=== PATIENT | female | born 1945 | race Caucasian/White ===

== ENCOUNTER 2024-12-29 23:44 | Inpatient (IN) | payer MEDICARE, OTHER, SELFPAY ==
[2024-12-29 23:47] VITALS: PULSE 56; RESP 20; O2SAT 94
[2024-12-29 23:50] VITALS: BP 134/74; PULSE 61; RESP 21; TEMP 36.3; O2SAT 89
[2024-12-30] VITALS (18 sets, daily range): BP systolic 99–139; BP diastolic 51–80; PULSE 52–107; RESP 5–100; TEMP 35.9–37.2; O2SAT 93–100
--- NOTE | 2024-12-30 01:20 | PD.EDSYNC ---
ED Syncope RME/HPI General Chief Complaint: Syncope / Near Syncope Stated Complaint: SYNCOPE Time Seen by Provider: 12/29/24 23:53 Arrival date/time: 12/29/24 23:44 RME / HPI RME / HPI narrative: Dr. Fall?s Main ED Evaluation: 79yo female with a history of Alzheimer's dementia, DM, HTN BIBA from home presents to the ED for a chief complaint of syncope. states the patient has had diarrhea for the last few days, reporting she lost control of her bowels today. He states the patient was sitting down on the toilet when she laid back and passed out, reporting she started shaking. He was concerned, so he called 911 to have her brought in for evaluation. He denies any sweating. Patient denies any headache, neck pain, chest pain, abdominal pain, extremity pain or any other associated symptoms. denies the patient being on any recent antibiotics. Related Data Home Medications ?Medication ?Instructions ?Recorded ?Confirmed atenolol 25 mg tablet (Tenormin) 25 mg PO QDAY #0 tabs 06/09/15 12/19/22 clonazepam 1 mg tablet (Klonopin) 1 mg PO BID #0 tabs 06/09/15 12/19/22 Held on 07/12/22. Instructions: Resume on 07/13/22. lisinopril 5 mg tablet 5 mg PO QDAY #0 tabs 06/09/15 12/19/22 escitalopram oxalate 10 mg tablet 10 mg PO QDAY 06/23/20 12/19/22 atorvastatin 20 mg tablet 20 mg PO HS 12/19/22 12/19/22 Allergies Allergy/AdvReac Type Severity Reaction Status Date / Time bacitracin Allergy Intermediate BLISTERS Verified 12/29/24 23:46 gramicidin D Allergy Intermediate BLISTERS Verified 12/29/24 23:46 neomycin Allergy Intermediate BLISTERS Verified 12/29/24 23:46 polymyxin B Allergy Intermediate BLISTERS Verified 12/29/24 23:46 Review of Systems Review of Systems Systems Reviewed: All systems reviewed, normal except as documented Past Medical History Past Medical History NEUROLOGIC: Positive Neurological Disorders, Cerebrovascular Accident and Dementia; Negative Seizures CARDIAC: Positive Cardiac Disorders, Hypercholesterolemia, Aneurysm and Hypertension; Negative Congestive Heart Failure RESPIRATORY: Negative Chronic Obstructive Pulmonary Disease (COPD) or Asthma GASTROINTESTINAL: Positive Gastrointestinal Disorders and Gastroesophageal Reflux Disease GENITOURINARY: Negative Renal Disease REPRODUCTIVE: Positive Previous Pregnancies MUSCULOSKELETAL: Positive Musculoskeletal Disorders, Arthritis, Osteoporosis and Scoliosis ENT: Positive Deafness ENDOCRINE: Negative Endocrine Disorders, Diabetes Mellitus Type 1 or Diabetes Mellitus Type 2 HEMATOLOGIC: Negative Blood Disorders or Sickle Cell Disease PSYCHO/SOCIAL: Positive Depression and Anxiety OTHER HISTORY: Positive Hospitalization and Falls; Negative Blood Transfusions, Blood Transfusion Reaction, Anesthesia Reactions, Organ Transplant, Chemotherapy, Radiation Therapy or Hyperbaric Therapy Surgical History SURGICAL: Positive Neurologic Surgery and Hysterectomy; Negative Organ Transplant Social History SMOKING STATUS: Never smoker SECOND HAND EXPOSURE: No SUBSTANCE USE: does not use ED Exam Narrative Physical exam: GENERAL APPEARANCE: awake, alert, oriented to self, pleasantly demented, well-developed, well-nourished, no acute distress VITALS: All vitals were reviewed and the pulse ox is 98% on room air, which is hypoxic according to my interpretation. HEENT: Normocephalic, atraumatic; pupils equal, round, reactive to light; EOMI; mucous membranes pink, moist; oropharynx clear NECK: Supple LUNGS: CTABL; no wheezes, no rales, no rhonchi HEART: Regular rate, regular rhythm; normal S1, S2; no murmurs ABDOMEN: non distended; normal BS; soft, no tenderness, no guarding, no rebound; no masses, no organomegaly, no hernia BACK: no CVA tenderness EXTREMITIES: atraumatic; no edema NEUROLOGIC: awake, alert, oriented to self, pleasantly demented; cranial nerves II-XII grossly intact; no focal sensory or motor deficits PSYCHIATRIC: appropriate mood and affect SKIN: warm, dry, normal color; no rashes Course Quality Measures none Orders Category Date Time Status 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 Care 12/30/24 01:23 Active Continuous Pulse Oximetry NOW Care 12/30/24 01:24 Completed EKG (ED ONLY) *Do not use* NOW Care 12/30/24 01:23 Completed In and Out Catheter X1 Care 12/30/24 01:22 Completed Insert IV STAT Care 12/30/24 01:23 Active Orthostatic Vitals STAT Care 12/30/24 01:[address] head/brain wo con Stat Exams 12/30/24 01:23 Taken EKG (ED Only) Stat Exams 12/30/24 01:22 Ordered XR chest 1V portable Stat Exams 12/30/24 01:28 Taken CBC Stat Lab 12/30/24 01:57 Completed Comprehensive Metabolic Panel Stat Lab 12/30/24 01:57 Completed HCG Qualitative,Urine Stat Lab 12/30/24 01:29 Completed Magnesium Stat Lab 12/30/24 01:57 Completed Prothrombin Time with INR Stat Lab 12/30/24 01:57 Completed Troponin I Stat Lab 12/30/24 01:57 Completed Urinalysis Stat Lab 12/30/24 01:29 Completed Urine Culture Stat Lab 12/30/24 01:29 Received LORazepam [Ativan Inj] Med 12/30/24 03:39 Once 0.5 mg IVP X1 ONE Sodium Chloride 0.9% 500 ml [Ns] 500 ml Med 12/30/24 03:39 Ordered IV 999 mls/hr cefTRIAXone/D5w 1gm IV premix [Rocephin/D5w 1gm IV Med 12/30/24 03:39 Ordered premix] 1 gm in 50 ml IV X1 Vital Signs Vital signs: Vital Signs Temperature 97.4 F 12/29/24 23:50 Pulse Rate 61 12/29/24 23:50 Respiratory Rate 21 H 12/29/24 23:50 Blood Pressure 134/74 H 12/29/24 23:50 Pulse Oximetry (%) 89 L 12/29/24 23:50 Oxygen Delivery Method Room Air 12/29/24 23:50 Syncope MDM Narrative MDM Narrative:: Scribe Attestation: 12/30/24 Isi Nicole am scribing for and in the presence of Dr. Fall. Patient data External records reviewed:: [facility] previous records (Per chart review, patient was seen here on 12/20/22 for Alzheimer's dementia.) Clinical information provided by:: patient and spouse Social determinants that could affect healthcare access:: none Patient has the following chronic illnesses:: Alzheimer's dementia, DM, HTN How is presenting disease/condition affected by chronic disease/condition?: uneffected by Evaluation data The following diagnostics were reviewed and interpreted by me:: lab results, radiology exam(s) and EKG tracing(s) Lab and/or radiology exams considered but not ordered:: none Interpretation Summary: WBC 15.8, PT and INR are normal, Glucose is 146, Troponin is normal, UA is positive for a UTI, HCG is negative, according to my interpretation. CXR shows normal cardiac silhouette, normal sharp diaphragmatic edge, no infiltrates, normal costophrenic angles, according to my interpretation. EKG done at 0150, sinus bradycardia, rate of 59, left axis deviation, no ectopy, QTc: 299, QRS: 120, no acute ischemia, according to my interpretation. Telerad Preliminary Report Draft Patient: ADRIANE BONILLA. Record#: [id number] Birthdate: 1945 Age/Sex: 79 / F Location: [facility] Attending Dr: Ordering Physician: Date of Service: Procedure(s): Accession Number(s): cc: ~ CT scan of the head without intravenous contrast (axial sections with sagittal and coronal reformats) December 30, 2024 0144 hours Clinical history: Syncope Compared with the prior study dated September 22, 2022 Findings: There is no evidence of intracranial hemorrhage, mass effect or midline shift. There are mild periventricular white matter hypodensities, likely representing chronic small vessel ischemia. There is moderate volume loss. There is atheromatous calcification of the intracranial arteries. Embolization coils are again noted in both internal carotid arteries. Postoperative changes are again noted in the occipital region. The calvarium is otherwise unremarkable. The mastoid air cells and the visualized paranasal sinuses are clear. Impression: No evidence of intracranial hemorrhage, mass effect or midline shift. If there are persistent clinical symptoms or additional clinical concerns, consider MRI. Chronic small vessel ischemia and volume loss. Report Electronically Signed By: Matt Lyle 12/30/2024 3:22:32 AM Medications / Prescriptions Medications or Prescriptions considered but not ordered:: none Medication administrations:: Medication Administration History Ceftriaxone Sodium/Dextrose (Rocephin/D5w 1gm Iv Premix) 1 gm in 50 mls @ 100 mls/hr IV X1 ONE Stop: 12/30/24 04:08 Sodium Chloride (Ns) 500 mls @ 999 mls/hr IV .Q31M ONE Stop: 12/30/24 04:09 Lorazepam (Lorazepam 2 Mg/Ml Vial) 0.5 mg IVP X1 ONE Stop: 12/30/24 03:40 see above Consultations Consultation(s) initiated? (list below): Yes Consultation #1 (Physician, Specialty, Details): Discussed case with the resident physician, attending Dr. Ventura from Hospitalist service regarding admission. Discussed patients ED course, exam findings, labs, and radiology results. The Hospitalist agrees to accept the patient for admission. Time: 03:41 Diagnosis Syncope Differential Diagnosis: vasovagal syncope and other (STEMI, hemorrhagic CVA, sepsis, septic shock) Most likely diagnosis given after review of the tests above:: UTI, sepsis, syncope Admission Indicated Admission indicated?: indicated Admission Request Was there a request for admission?: Yes Admission Attestation Admission request attestation: Discussed case with [] from Hospitalist service regarding admission. Discussed patients ED course, exam findings, labs, and radiology results. The Hospitalist [agrees,declines] to accept the patient for admission. Disposition Plan Disposition Plan: Admit Discharge Plan Plan Patient Disposition: Admit Acute Care w/in Hospital Prescriptions/Referrals Prescriptions/Med Rec: No Action clonazepam [Klonopin] 1 MG tablet 1 mg PO BID Qty: 0 atenolol [Tenormin] 25 MG tablet 25 mg PO QDAY Qty: 0 lisinopril 5 MG tablet 5 mg PO QDAY Qty: 0 escitalopram oxalate 10 mg Tablet 10 mg PO QDAY atorvastatin 20 mg tablet 20 mg PO HS Referrals: Jaime Wahl MD [Primary Care Provider] - In 1 week Problem List Clinical Impression: UTI (urinary tract infection), Sepsis, Syncope Patient/Caregiver Discharge Instructions Print Language: Upper Sorbian Stand Alone Forms: Mag[employer] Award Info., Patient Portal Info Letter
--- NOTE | 2024-12-30 01:22 | EKG_ITS ---
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
--- NOTE | 2024-12-30 01:23 | XR_ITS ---
Examination: CT brain head without contrast. 2-D sagittal coronal reconstructions Date and time of exam:December 30, 2024 0144 hours Comparison December 20, 2022 INDICATIONS: Syncopal episode today CTDI: vol (mGy):44.7 DLP: (mGycm):889 Technique: Multiple CT axial sections of the brain have been obtained, 5 mm slice thickness. Contrast has not been administered. 2-D sagittal, coronal reconstructions have been obtained Low dose protocols were performed. One or more of the following dose reduction techniques were used; automated exposure control, adjustment of the mA and/or KV according to patient size, use of iterative reconstruction technique. Findings: Mild ventricular enlargement. Embolization material parasellar regions Intra-axial or extra-axial hemorrhage density is not seen. No mass effect or midline shift Basal cisterns are not remarkable. Fourth ventricle is midline. Cranial vault intact. Postoperative changes posterior cranial vault Impression: Negative for acute hemorrhage, mass effect or midline shift Advise clinical correlation and follow up accordingly
--- NOTE | 2024-12-30 01:28 | XR_ITS ---
Examination: AP chest single view TECHNIQUE: AP portable semiupright chest single view Date and time: December 30, 2024 0156 hours INDICATIONS: Syncopal episode tonight. FINDINGS: Normal heart size. Lungs are clear. Moderate thoracic dextroscoliosis IMPRESSION: No active disease
[2024-12-30 02:01] LABS: Collection Type, Urine Catheter; Squamous Epithelial Cell,Urine 0 /hpf (0-5)
[2024-12-30 02:05] LABS: Basophils % (Auto) 0 % (0-2.5); Eosinophils # (Auto) 0.1 Thou/mm3 (0.0-0.5); Eosinophils % (Auto) 0 % (0-10); Hematocrit 39.4 % (36.0-46.0); Hemoglobin 13.2 g/dL (12.0-16.0); Immature Granulocytes % (Auto) 1 % (0-0); Lymphocytes # (Auto) 1.1 Thou/mm3 (1.0-4.8); Lymphocytes % (Auto) 7 % (10-50); Mean Corpuscular HGB Conc 33.5 g/dl (31.0-37.0); Mean Corpuscular Hemoglobin 29.8 pg (25.0-35.0); Mean Corpuscular Volume 89 fL (80-100); Monocytes # (Auto) 0.8 Thou/mm3 (0.0-0.8); Monocytes % (Auto) 5 % (0-12); Neutrophils # (Auto) 13.7 Thou/mm3 (1.8-7.7); Neutrophils % (Auto) 87 % (37-80); Nucleated Red Blood Cell % 0 /100 WBC (0); Platelet Count 212 Thou/mm3 (140-440); RDW Standard Deviation 41.1 fL (36.4-46.3); Red Blood Count 4.43 Miln/mm3 (4.00-5.20); White Blood Count 15.8 Thou/mm3 (3.6-11.0)
[2024-12-30 02:11] LABS: Bacteria,Urine 2+; Bilirubin,Urine Negative (Negative); Blood,Urine Trace (Negative); Calcium Oxalate Crystals,Urine 1+; Clarity,Urine Turbid (Clear/Hazy); Color,Urine Yellow (Lt Yel-Yel); Glucose, Urine Negative (Negative); Hyaline Casts,Urine < 1 /hpf (0-1); Ketones,Urine Negative (Negative); Leukocyte Esterase,Urine Positive (Negative); Nitrite,Urine Negative (Negative); PH,Urine 5.5 (5.0-7.0); Protein,Urine 1+ (Neg - Trace); RBC,Urine 11 /hpf (0-3); Specific Gravity,Urine 1.022 (1.001-1.035); Urobilinogen,Urine Negative mg/dL (0.0-1.0); WBC,Urine 97 /hpf (0-5)
[2024-12-30 02:13] LABS: HCG Qualitative,Urine Negative
[2024-12-30 02:17] LABS: INR 1.1 (0.9-1.3); Prothrombin Time 11.9 Seconds (9.0-12.2)
[2024-12-30 02:25] LABS: Alanine Aminotransferase 30 U/L (10-49); Albumin, Serum 4.4 gm/dL (3.4-4.8); Albumin/Globulin Ratio 1.9 (1.2-2.2); Alkaline Phosphatase 120 U/L (46-116); Anion Gap 11 (7-16); Aspartate Amino Transferase 25 U/L (0-34); BUN/Creatinine Ratio 16 Ratio (12-20); Bilirubin,Total 2.1 mg/dL (0.3-1.2); Blood Urea Nitrogen 13 mg/dL (9-23); Carbon Dioxide 31.3 mMol/L (20.0-31.0); Chloride 100 mMol/L (98-107); Creatinine (Component) 0.8 mg/dL (0.6-1.3); Estimated Creatinine Clearance 50.6 mL/min (>60); Globulin 2.3 gm/dL (2.3-3.5); Glucose 146 mg/dL (74-106); Magnesium 1.7 mg/dL (1.6-2.6); Osmolality,Calculated 286 (275-295); Potassium 3.7 mMol/L (3.4-5.1); Sodium 142 mMol/L (136-145); Total Protein 6.7 gm/dL (5.7-8.2); Troponin I < 0.002 ng/mL (0.0-0.045); eGFR > 60 See Note
--- NOTE | 2024-12-30 03:23 | PRELIM_ITS ---
CT scan of the head without intravenous contrast (axial sections with sagittal and coronal reformats) December 30, 2024 0144 hours Clinical history: Syncope Compared with the prior study dated September 22, 2022 Findings: There is no evidence of intracranial hemorrhage, mass effect or midline shift. There are mild periventricular white matter hypodensities, likely representing chronic small vessel ischemia. There is moderate volume loss. There is atheromatous calcification of the intracranial arteries. Embolization coils are again noted in both internal carotid arteries. Postoperative changes are again noted in the occipital region. The calvarium is otherwise unremarkable. The mastoid air cells and the visualized paranasal sinuses are clear. Impression: No evidence of intracranial hemorrhage, mass effect or midline shift. If there are persistent clinical symptoms or additional clinical concerns, consider MRI. Chronic small vessel ischemia and volume loss. Report Electronically Signed By: Matt Lyle 12/30/2024 3:22:32 AM [EST]
[2024-12-30] MEDS: cefTRIAXone/D5w 1gm IV premix 1 GM/50 ML BAG IV (04:18)
[2024-12-30] MEDS: SODIUM CHLORIDE 0.9% 500 ML 500 ML 999 ML IV (04:19)
--- NOTE | 2024-12-30 05:39 | ESHP_ITS ---
<Statement entered by Maxi Ventura MD - 12/30/24 13:27> I have discussed and was present for the essential components of the history, physical examination, diagnosis, and treatment plan with the resident. I agree with the patient's care as documented by the resident and amended herein by me. Maxi Ventura MD FACP. Documentation for date of: 12/30/24 HPI History of Present Illness History of present illness: Patient is a 79-year-old female with a past medical history of Alzheimer's dementia, hypertension, hyperlipidemia, coiling of brain aneurysms, who was brought into the ER by her female, who is present at bedside and contributed to the H&P. Per the patient has been progressively getting worse from her baseline, especially over the past 3 weeks she is becoming more incontinent of bladder and bowel movements, she is having loose bowel movements in the past few days, yesterday the patient lost control of her bowels, she was leaning over the toilet seat when her body stiffened up and then started having jerky movements, which lasted around 2 minutes. After the episode patient was drowsy and nonresponsive for quite some time. called EMS and brought her to the emergency room for further evaluation. Per , the patient has been not been evaluated by a neurologist in the past, has had no past medical history of seizures. Denied history of fever, chest pain shortness of breath or headache. she is able to ambulate with her walker, but is having a shuffling gait and has had frequent falls over the past few weeks. In the emergency room, Patient has stable vitals, blood pressure 130/74, respiratory 21, pulse rate 69, afebrile, saturating well on room air, initial labs showed normal hemoglobin, leukocytosis, normal renal and liver function, UA positive for UTI. Chest x-ray is negative for evidence of pneumonia. EKG showed sinus bradycardia heart rate 59, CT head was ordered which showed no evidence of intracranial hemorrhage, mass effect or midline shift. Past medical history: Alzheimer's dementia, hypertension, hyperlipidemia, coiling of brain aneurysms, Per the patient has kivalina in her brain from previous surgery, and was denied an MRI in the past because of that. Past surgical history: Hip surgery, clotting of brain aneurysms. Allergies reviewed. Home meds reviewed. Review of Systems Review of Systems Systems Reviewed: All systems reviewed, normal except as documented Past Medical History Past Medical History NEUROLOGIC: Positive Neurological Disorders, Cerebrovascular Accident and Dementia; Negative Seizures CARDIAC: Positive Cardiac Disorders, Hypercholesterolemia, Aneurysm and Hypertension; Negative Congestive Heart Failure RESPIRATORY: Negative Chronic Obstructive Pulmonary Disease (COPD) or Asthma GASTROINTESTINAL: Positive Gastrointestinal Disorders and Gastroesophageal Reflux Disease GENITOURINARY: Negative Renal Disease REPRODUCTIVE: Positive Previous Pregnancies MUSCULOSKELETAL: Positive Musculoskeletal Disorders, Arthritis, Osteoporosis and Scoliosis ENT: Positive Deafness ENDOCRINE: Negative Endocrine Disorders, Diabetes Mellitus Type 1 or Diabetes Mellitus Type 2 HEMATOLOGIC: Negative Blood Disorders or Sickle Cell Disease PSYCHO/SOCIAL: Positive Depression and Anxiety OTHER HISTORY: Positive Hospitalization and Falls; Negative Blood Transfusions, Blood Transfusion Reaction, Anesthesia Reactions, Organ Transplant, Chemotherapy, Radiation Therapy or Hyperbaric Therapy Surgical History SURGICAL: Positive Neurologic Surgery and Hysterectomy; Negative Organ Transplant Social History SMOKING STATUS: Never smoker SECOND HAND EXPOSURE: No SUBSTANCE USE: does not use Exam Vital Signs Temp Pulse Resp BP Pulse Ox O2 Del Method 97.8 F 66 24 H 130/80 98 Room Air 12/30/24 03:17 12/30/24 03:17 12/30/24 03:17 12/30/24 03:17 12/30/24 03:17 12/30/24 03:17 Narrative Exam The patient is alert awake in no acute distress HEENT unremarkable Neck supple no JVD carotid pulse palpable no bruit Chest symmetrical lungs clear to auscultation percussion Heart S1-S2 regular S4 gallop heard No gallops or murmurs Abdomen benign soft no organomegaly Extremities unremarkable except for findings consistent with fracture of the hip 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 LAB 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 exam normal Results: Labs 12/30/24 01:57 12/30/24 01:57 Labs: Short CBC 12/30/24 Range/Units 01:57 WBC 15.8 H (3.6-11.0) Thou/mm3 Hgb 13.2 (12.0-16.0) g/dL Hct 39.4 (36.0-46.0) % Plt Count 212 (140-440) Thou/mm3 BMP 12/30/24 01:57 Sodium 142 Potassium 3.7 Chloride 100 Carbon Dioxide 31.3 H BUN 13 Creatinine 0.8 Glucose 146 H Calcium 9.0 Cardiac Enzymes 12/30/24 Range/Units 01:57 Troponin I < 0.002 (0.0-0.045) ng/mL Liver Function 05/20/25 Range/Units 01:57 Total Bilirubin 2.1 H (0.3-1.2) mg/dL AST 25 (0-34) U/L ALT 30 (10-49) U/L Alkaline Phosphatase 120 H (46-116) U/L Albumin 4.4 (3.4-4.8) gm/dL Urine 12/30/24 Range/Units 01:29 Urine Color Yellow (Lt Yel-Yel) Urine Clarity Turbid A (Clear/Hazy) Urine pH 5.5 (5.0-7.0) Ur Specific Weld 1.022 (1.001-1.035) Urine Protein 1+ A (Neg - Trace) Urine Glucose (UA) Negative (Negative) Quality Measures Quality Measures none Advance care planning discussed with:: patient and spouse Medications Home Medications and Allergies Home Medications ?Medication ?Instructions ?Recorded ?Confirmed ?Type atenolol 25 mg tablet (Tenormin) 25 mg PO QDAY #0 tabs 06/09/15 12/19/22 History clonazepam 1 mg tablet (Klonopin) 1 mg PO BID #0 tabs 06/09/15 12/19/22 History Held on 07/12/22. Instructions: Resume on 07/13/22. lisinopril 5 mg tablet 5 mg PO QDAY #0 tabs 5 12/19/22 History escitalopram oxalate 10 mg tablet 10 mg PO QDAY 12/19/22 History atorvastatin 20 mg tablet 20 mg PO HS 12/19/22 3 History Allergies Allergy/AdvReac Type Severity Reaction Status Date / Time bacitracin Allergy Intermediate BLISTERS Verified 12/29/24 23:46 gramicidin D Allergy Intermediate BLISTERS Verified 12/29/24 23:46 neomycin Allergy Intermediate BLISTERS Verified 12/29/24 23:46 polymyxin B Allergy Intermediate BLISTERS Verified 12/29/24 23:46 Visit Medications Acetaminophen (Acetaminophen 325 Mg Tablet) 650 mg PO Q6H PRN PRN Reason: PAIN OR FEVER > 101 Stop: 01/29/25 05:32 Ceftriaxone Sodium/Dextrose (Rocephin/D5w 1gm Iv Premix) 1 gm in 50 mls @ 100 mls/hr IV QDAY OBDULIA Stop: 01/06/25 05:36 Lorazepam (Lorazepam 2 Mg/Ml Vial) 2 mg IVP Q15MIN PRN PRN Reason: SEIZURES Stop: 01/04/25 05:32 Ondansetron HCl (Ondansetron Inj 2 Mg/Ml Inj 2 Ml) 4 mg IV Q6H PRN; Protocol PRN Reason: NAUSEA OR VOMITING Stop: 01/29/25 05:32 Sennosides (Senna Tablet) 2 tab PO BID PRN; Protocol PRN Reason: CONSTIPATION Stop: 01/29/25 05:32 Discontinued Medications Ceftriaxone Sodium/Dextrose (Rocephin/D5w 1gm Iv Premix) 1 gm in 50 mls @ 100 mls/hr IV X1 ONE Stop: 12/30/24 04:08 Last Infusion: 12/30/24 05:08 Dose: Infused Sodium Chloride (Ns) 500 mls @ 999 mls/hr IV .Q31M ONE Stop: 12/30/24 04:09 Last Infusion: 12/30/24 05:08 Dose: Infused Lorazepam (Lorazepam 2 Mg/Ml Vial) 0.5 mg IVP X1 ONE Stop: 12/30/24 03:40 Assessment & Plan Plan Patient is a 79-year-old female with a past medical history of Alzheimer's dementia, hypertension, hyperlipidemia, coiling of brain aneurysms, who was admitted to the hospital due to concern for new onset seizures. #New onset seizure #Acute encephalopathy, likely postictal state Generalized tonic-clonic seizure with postictal state and bowel incontinence, witnessed by , first episode of new onset seizure, no prior medical history of epilepsy or brain mass. CT head negative for acute stroke or hemorrhage. 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 New onset seizure, first episode, will hold off on antiepileptic medications, will keep seizure precautions and lorazepam as needed in case of seizures. Pending med rec, will hold home antihypertensive medication at this point, pending neurology recommendations. ? Ordered orthostatic vitals ? Lorazepam as needed for seizures ? Neurology consult Dr. Dumont placed, pending recommendations. ? Will hold off on aspirin due to history of brain aneurysm, pending neurology recommendations - PT ordered #UTI Urinalysis shows UTI, patient does have leukocytosis, possibly reactive leukocytosis versus UTI. ? Ceftriaxone 1 g daily - follow urine culture #Diarrhea No recent antibiotic exposure reported, has been incontinent of bowel and bladder movements for the past few weeks. Last concerned about C. difficile at this point. Consider isolation and C. difficile PCR if non resolving diarrhea. ? Stool culture and stool WBCs ordered ? Loperamide as needed Plan of care discussed with attending Dr Audrey Parish pgy2
[2024-12-30] MEDS: HEPARIN SOD INJ 5000 UNIT/ML VIAL SC ×2 (05:55→21:05)
--- NOTE | 2024-12-30 06:05 | EKG_ITS ---
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
[2024-12-30] MEDS: SODIUM CHLORIDE 0.9% 1000 ML 1,000 ML 125 ML IV (07:43)
--- NOTE | 2024-12-30 08:09 | PC.NURSE ---
Pt sitting up on stretcher, denies pain or discomfort, has difficult time keeping tele leads connected. Fluids infusing, at bedside attentive to pt, call newman in reach, will cont w/POC.
--- NOTE | 2024-12-30 09:40 | EKG_ITS ---
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: : 1945 Requested By: Aguilar Mcnulty Order Number: [id number] Reading MD: Aguilar Mcnulty Measurements Intervals [place] Rate: 59 P: 59 WV: 120 QRS: -37 QRSD: 120 T: 0 QT: 299 QTc: 298 Interpretive Statements SINUS BRADYCARDIA LEFT AXIS DEVIATION [QRS AXIS < -30] MODERATE INTRAVENTRICULAR CONDUCTION DELAY [110+ ms QRS DURATION] NONSPECIFIC ST & T-WAVE ABNORMALITY Compared to ECG 06/23/2020 09:10:48 Left-axis deviation now present Intraventricular conduction delay now present T-wave abnormality now present Sinus rhythm no longer present Sinus arrhythmia no longer present Short W[place] interval no longer present ST (T wave) deviation no longer present /store/S0/[id number]
[2024-12-30] MEDS: DONEPEZIL HCL 5 MG TABLET 10 MG PO (10:07)
[2024-12-30] MEDS: ESCITALOPRAM OXALATE 10 MG TABLET PO (10:07)
[2024-12-30 10:52] LABS: Thyroid Stimulating Hormone 2.17 uIU/mL (0.55-4.78)
--- NOTE | 2024-12-30 14:45 | PD.RESPRO ---
Documentation for date of: 12/30/24 Subjective Subjective Interval history: Patient examined at bedside today. No acute overnight events. Patient is poor historian at this time. Patient is able to answer some questions, however is poor historian. Patient's at bedside had reported that patient had seizure for about 2 minutes. He denies history of seizures prior for the patient. He also says that patient has [place] in the brain due to coiled aneurysm in the past. He also says that patient has been losing control of bowel for about a week. No other complaints at this time. Exam Vital Signs Temp Pulse Resp BP Pulse Ox O2 Del Method 97.7 F 61 16 139/66 H 100 Room Air 12/30/24 09:17 12/30/24 12:01 12/30/24 12:01 12/30/24 09:17 12/30/24 09:17 12/30/24 09:17 Narrative Exam General: AAOx1, NAD, pleasant, patient is not always alert to time and place, frail HEENT: Moist mucous membranes, conjunctiva clear, EOMI, PERRLA, Cardiovascular: S1, S2, radial pulses +2 bilat, RRR Pulmonary: CTAB bilat no cough, no wheezing GI: No tenderness to light or deep palpitation, no guarding, rigidity, rebound tenderness or distension Extremities: No presence of trace or pitting edema in lower extremities bilaterally, dorsalis pedis pulses +2 bilaterally Neuro: AAOx1, no focal motor or sensory deficits in the UE or LE bilat, sometimes sentences she says does not make sense Psych: Good judgement, thought and behavior. Cooperative Objective Labs 12/30/24 01:57 12/30/24 01:57 Labs: Laboratory Results - last 24 hr 12/30/24 12/30/24 12/30/24 01:29 01:57 10:04 WBC 15.8 H RBC 4.43 Hgb 13.2 Hct 39.4 MCV 89 MCH 29.8 MCHC 33.5 RDW Std Deviation 41.1 Plt Count 212 Neut % (Auto) 87 H Lymph % (Auto) 7 L [place] % (Auto) 5 Eos % (Auto) 0 Baso % (Auto) 0 Neut # (Auto) 13.7 H Lymph # (Auto) 1.1 [place] # (Auto) 0.8 Eos # (Auto) 0.1 Baso # (Auto) 0.0 Immature Gran # (Auto) 0.10 H Absolute Nucleated RBC 0.00 Immature Gran % 1 H Nucleated RBC % 0 PT 11.9 INR 1.1 Sodium 142 Potassium 3.7 Chloride 100 Carbon Dioxide 31.3 H Anion Gap 11 BUN 13 Creatinine 0.8 Estim Creat Clear Calc 50.6 L eGFR > 60 BUN/Creatinine Ratio 16 Glucose 146 H Calculated Osmolality 286 Calcium 9.0 Corrected Calcium 9.0 Magnesium 1.7 Total Bilirubin 2.1 H AST 25 ALT 30 Alkaline Phosphatase 120 H Troponin I < 0.002 Total Protein 6.7 Albumin 4.4 Globulin 2.3 Albumin/Globulin Ratio 1.9 TSH 2.17 Ur Collection Type Catheter Urine Color Yellow Urine Clarity Turbid A Urine pH 5.5 Ur Specific [place] 1.022 Urine Protein 1+ A Urine Glucose (UA) Negative Urine Ketones Negative Urine Blood Trace Urine Nitrite Negative Urine Bilirubin Negative Urine Urobilinogen (Auto) Negative Ur Leukocyte Esterase Positive Urine RBC 11 H Urine WBC 97 H Ur Squamous Epith Cells 0 Calcium Oxalate Crystal 1+ A Urine Bacteria 2+ A Hyaline Casts < 1 Urine HCG, Qual Negative Quality Measures Quality Measures none Advance care planning discussed with:: patient Assessment & Plan Assessment Current Active Medications: Generic Name Dose Route Start Last Admin Trade Name Freq PRN Reason Stop Dose Admin Acetaminophen 650 mg 12/30/24 05:33 Acetaminophen 325 Mg Tablet PO 01/29/25 05:32 Q6H PRN PAIN OR FEVER > 101 Atorvastatin Calcium 20 mg 12/30/24 21:00 Atorvastatin Calcium 20 Mg Tablet PO 01/29/25 20:59 HS OBDULIA Donepezil HCl 10 mg 12/30/24 09:45 12/30/24 10:07 Donepezil Hcl 5 Mg Tablet PO 01/29/25 09:44 10 mg QDAY OBDULIA Administration Escitalopram Oxalate 10 mg 12/30/24 09:45 12/30/24 10:07 Escitalopram Oxalate 10 Mg Tablet PO 01/29/25 09:44 10 mg QDAY OBDULIA Administration Heparin Sodium (Porcine) 5,000 unit 12/30/24 05:45 12/30/24 05:55 Heparin Sod Inj 5000 Unit/Ml Vial SC 01/13/25 05:44 5,000 unit Q12HR OBDULIA Administration Ceftriaxone Sodium/Dextrose 1 gm in 50 mls @ 100 mls/hr 12/30/24 05:37 12/30/24 05:53 Rocephin/D5w 1gm Iv Premix IV 01/06/25 05:36 Not Given QDAY OBDULIA Loperamide HCl 2 mg 12/30/24 06:07 Loperamide 2 Mg Capsule PO 01/06/25 06:06 Q6HR PRN DIARRHEA Lorazepam 2 mg 12/30/24 05:33 Lorazepam 2 Mg/Ml Vial IVP 01/04/25 05:32 Q15MIN PRN SEIZURES Ondansetron HCl 4 mg 12/30/24 05:33 Ondansetron Inj 2 Mg/Ml Inj 2 Ml IV 01/29/25 05:32 Q6H PRN NAUSEA OR VOMITING Protocol Quetiapine Fumarate 50 mg 12/30/24 21:00 Quetiapine Fumarate 25 Mg Tablet PO 01/29/25 20:59 HS OBDULIA Plan Assessment Patient is a 79-year-old female with a past medical history of Alzheimer's dementia, hypertension, hyperlipidemia, coiling of brain aneurysms, who was admitted to the hospital due to concern for new onset seizures. #Acute encephalopathy s/p postictal state, improving #New onset seizure Generalized tonic-clonic seizure with postictal state and bowel incontinence, witnessed by , first episode of new onset seizure, no prior medical history of epilepsy or brain mass. CT head negative for acute stroke or hemorrhage. Per patient has cis-[place] in her brain, and was declined an MRI in the past because of that, will get neurology consult if MRI is required to order repeat CT with contrast to rule out any intracranial lesion. New onset seizure, first episode, will hold off on antiepileptic medications, will keep seizure precautions and lorazepam as needed in case of seizures. Pending med rec, will hold home antihypertensive medication at this point, pending neurology recommendations. 12/30/2024: At this point working diagnosis for patient's new onset seizures could be infectious as patient does have UTI, there does not seem to be electrolyte abnormalities at this time either Patient will likely need to be on antiepileptic moving forward, however will wait for neurology recs Patient also has history of dementia Plan: ? Neurology consulted, appreciate recs ? Follow-up orthostatic vitals ? Lorazepam as needed for seizures ? Follow-up EEG ? May consider MRI brain, however patient does have [place] in their head ? PT ordered ? Resumed home donezepil ? Resumed home Seroquel #UTI Urinalysis shows WBC, bacteria and LE Plan: ? Ceftriaxone 1 g daily ? Follow urine culture #Hypertension #Hyperlipidemia Chronic Plan: ? Holding blood pressure medicines as blood pressures soft at this point ? Resumed home Lipitor 20 mg at bedtime #Diarrhea, improving Plan: ? Stool culture and stool WBCs ordered #History of depression Plan: ? Resume home Lexapro 10 mg #Health Maintenance Disposition: Telemetry DVT prophylaxis: Heparin GI prophylaxis: None indicated at this time Diet: Regular CODE STATUS: Full Patient seen and care discussed with my attending physician, Dr. Cam Mcnulty, PGY-1 Attending Provider Attestation/Addendum I have discussed and was present for the essential components of the history, physical examination, diagnosis, and treatment plan with the resident. I agree with the patient's care as documented by the resident and amended herein by me. Antonio Levy DO. Although this document has been carefully reviewed, there may still be some phonetic and other typographical errors. These errors are purely grammatical due to imperfections in the software program and should not be construed in any way to compromise the substance of the patient's medical care during this visit.
--- NOTE | 2024-12-30 16:05 | PD.RESCONSUL ---
HPI Data of Consult Requesting Physician: Maxi Ventura MD Admitting Provider: Maxi Ventura MD Attending Provider: Maxi Ventura MD Primary Care Provider: Jaime Wahl MD Consult Narrative Reason for consult: seizure episode History of present illness: The patient is a 79-year-old female with a previous medical history of Alzheimer's disease, hypertension, AVM and brain aneurysms status post coiling who was brought in on 12/30/2024 due to episode of altered mentation with extension of her body and jerking movements afterwards that lasted less than 5 minutes. Due to patient condition most of the history was gathered through chart review and conversation with her who is her primary caregiver. Her at the bedside, reports that in the last week patient has been experiencing diarrhea, she has urinary and fecal incontinence on the baseline. She asked her to have her to go to the toilet where she had an bowel movement and he reports that he saw that she was standing with her legs twisted inwardly, her speech was not making sense, he helped her to sit down. Then she had an extension of her body and afterward jerking movements. It all lasted less than 5 minutes. He denies similar episodes in the past. ED course: Blood pressure 134/74, heart rate 61, saturating well on room air. Labs showed WBC count 15.8, hemoglobin 13.2, sodium 142, potassium 3.7, creatinine 0.8, EGFR more than 60, glucose 146, calcium 9.0, alkaline phosphatase 120, UA was positive for signs of UTI. Head CT was negative for acute intracranial pathology, embolization material were visualized in parasellar regions. Neurology was consulted for new onset provoked seizure. cc:: cc: Maxi Ventura MD Review of Systems Review of Systems ROS Unobtainable: unobtainable due to mental status Exam Vital Signs Temp Pulse Resp BP Pulse Ox O2 Del Method 97.7 F 61 16 139/66 H 100 Room Air 12/30/24 09:17 12/30/24 12:01 12/30/24 12:01 12/30/24 09:17 12/30/24 09:17 12/30/24 09:17 Narrative Exam Gen: Thin elderly female. HEENT: NCAT, PERRLA, EOMI, MMM, anicteric conjunctivae. CVS: normal S1 and S2. RRR. No M/R/G. Resp: CTA B/L. No rhonchi, rales, crackles or wheezing. Abd: soft, non-tender, non-distended. BS+ in all 4 quadrants. MSK: Good ROM in BUE & BLE. No edema or rash. Neuro: CN II-XII grossly intact. Strength 5/5 in BUE & BLE. Alert and oriented x1 (reports her name, inable to name date and location and why she is in the hospital). Patient is read her name on the board. Psych: hard to assess, patient appears mildly confused but overall content. Results Labs 12/31/24 05:35 12/31/24 05:35 Labs: Short CBC 12/30/24 Range/Units 01:57 WBC 15.8 H (3.6-11.0) Thou/mm3 Hgb 13.2 (12.0-16.0) g/dL Hct 39.4 (36.0-46.0) % Plt Count 212 (140-440) Thou/mm3 BMP 12/30/24 01:57 Sodium 142 Potassium 3.7 Chloride 100 Carbon Dioxide 31.3 H BUN 13 Creatinine 0.8 Glucose 146 H Calcium 9.0 Cardiac Enzymes 12/30/24 Range/Units 01:57 Troponin I < 0.002 (0.0-0.045) ng/mL Liver Function 12/30/24 Range/Units 01:57 Total Bilirubin 2.1 H (0.3-1.2) mg/dL AST 25 (0-34) U/L ALT 30 (10-49) U/L Alkaline Phosphatase 120 H (46-116) U/L Albumin 4.4 (3.4-4.8) gm/dL Urine 12/30/24 Range/Units 01:29 Urine Color Yellow (Lt Yel-Yel) Urine Clarity Turbid A (Clear/Hazy) Urine pH 5.5 (5.0-7.0) Ur Specific [place] 1.022 (1.001-1.035) Urine Protein 1+ A (Neg - Trace) Urine Glucose (UA) Negative (Negative) Quality Measures Quality Measures VTE prophylaxis Advance care planning discussed with:: other Medications Home Medications and Allergies Home Medications ?Medication ?Instructions ?Recorded ?Confirmed ?Type atenolol 25 mg tablet (Tenormin) 25 mg PO QDAY #0 tabs 06/09/15 12/30/24 History clonazepam 1 mg tablet (Klonopin) 1 mg PO BID #0 tabs 06/09/15 12/30/24 History Held on 07/12/22. Instructions: Resume on 07/13/22. lisinopril 5 mg tablet 5 mg PO QDAY #0 tabs 06/09/15 12/30/24 History escitalopram oxalate 10 mg tablet 10 mg PO QDAY 06/23/20 12/30/24 History atorvastatin 20 mg tablet 20 mg PO HS 12/19/22 12/30/24 History alendronate 70 mg tablet 70 mg PO QWEEK 12/30/24 12/30/24 History donepezil 10 mg tablet 10 mg PO QDAY 12/30/24 12/30/24 History metformin 500 mg tablet 500 mg PO QDAY 12/30/24 12/30/24 History quetiapine 50 mg tablet 50 mg PO HS 12/30/24 12/30/24 History Allergies Allergy/AdvReac Type Severity Reaction Status Date / Time bacitracin Allergy Intermediate BLISTERS Verified 12/29/24 23:46 gramicidin D Allergy Intermediate BLISTERS Verified 12/29/24 23:46 neomycin Allergy Intermediate BLISTERS Verified 12/29/24 23:46 polymyxin B Allergy Intermediate BLISTERS Verified 12/29/24 23:46 morphine Allergy Agitated Verified 12/30/24 10:00 Visit Medications Acetaminophen (Acetaminophen 325 Mg Tablet) 650 mg PO Q6H PRN PRN Reason: PAIN OR FEVER > 101 Stop: 01/29/25 05:32 Atorvastatin Calcium (Atorvastatin Calcium 20 Mg Tablet) 20 [address] [facility] Stop: 01/29/25 20:59 Divalproex Sodium (Divalproex Sod Dr 500 Mg Tablet.Dr) 500 mg PO BID [facility] Stop: 01/29/25 20:59 Donepezil HCl (Donepezil Hcl 5 Mg Tablet) 10 mg PO QDAY [facility] Stop: 01/29/25 09:44 Last Admin: 12/30/24 10:07 Dose: 10 mg Escitalopram Oxalate (Escitalopram Oxalate 10 Mg Tablet) 10 mg PO QDAY [facility] Stop: 01/29/25 09:44 Last Admin: 12/30/24 10:07 Dose: 10 mg Heparin Sodium (Porcine) (Heparin Sod Inj 5000 Unit/Ml Vial) 5,000 unit SC Q12HR OBDULIA Stop: 01/13/25 05:44 Last Admin: 12/30/24 05:55 Dose: 5,000 unit Ceftriaxone Sodium/Dextrose (Rocephin/D5w 1gm Iv Premix) 1 gm in 50 mls @ 100 mls/hr IV QDAY OBDULIA Stop: 01/06/25 05:36 Last Admin: 12/30/24 05:53 Dose: Not Given Loperamide HCl (Loperamide 2 Mg Capsule) 2 mg PO Q6HR PRN PRN Reason: DIARRHEA Stop: 01/06/25 06:06 Lorazepam (Lorazepam 2 Mg/Ml Vial) 2 mg IVP Q15MIN PRN PRN Reason: SEIZURES Stop: 01/04/25 05:32 Ondansetron HCl (Ondansetron Inj 2 Mg/Ml Inj 2 Ml) 4 mg IV Q6H PRN; Protocol PRN Reason: NAUSEA OR VOMITING Stop: 01/29/25 05:32 Quetiapine Fumarate (Quetiapine Fumarate 25 Mg Tablet) 50 mg PO HS OBDULIA Stop: 01/29/25 20:59 Discontinued Medications Ceftriaxone Sodium/Dextrose (Rocephin/D5w 1gm Iv Premix) 1 gm in 50 mls @ 100 mls/hr IV X1 ONE Stop: 12/30/24 04:08 Last Infusion: 12/30/24 05:08 Dose: Infused Sodium Chloride (Ns) 500 mls @ 999 mls/hr IV .Q31M ONE Stop: 12/30/24 04:09 Last Infusion: 12/30/24 05:08 Dose: Infused Sodium Chloride (Ns) 1,000 mls @ 125 mls/hr IV .Q8H ONE Stop: 12/30/24 14:04 Last Admin: 12/30/24 07:43 Dose: 125 mls/hr Lorazepam (Lorazepam 2 Mg/Ml Vial) 0.5 mg IVP X1 ONE Stop: 12/30/24 03:40 Last Admin: 12/30/24 05:53 Dose: Not Given Sennosides (Senna Tablet) 2 tab PO BID PRN; Protocol PRN Reason: CONSTIPATION Stop: 01/29/25 05:32 Assessment & Plan Plan The patient is a 79-year-old female with a previous medical history of Alzheimer's disease, hypertension, AVM and brain aneurysms status post coiling who was brought in on 12/30/2024 due to episode of altered mentation with extension of her body and jerking movements afterwards that lasted less than 5 minutes. #New onset seizure #Provoked seizure #History of Alzheimer's disease #History of AVM, brain aneurysm s/p coiling Patient is predisposed to the seizures on the baselline due to chronical conditioins and UTI could have provoked it. MRI of the brain would not be informative due to artefacts from the coiling material. Plan: - Depakote 500 mg BID - continue with donepezil - refrain from benzodiazepines, anticholinergics if possible - physical therapy - EEG ordered - seizure precautions #UTI #Diarrhea - management per primary team Plan of care discussed with attending Dr. Julia Evans MD, PGY 1. Attending Provider Attestation/Addendum I personally have seen and examined the patient at the bedside and I agree with resident's findings, assessment and plan of care. FU with EEG, continue Depakote 500 mg bid for better SE profile and considering her baseline dementia.
--- NOTE | 2024-12-30 16:29 | PC.NURSE ---
Notified Dr Mcnulty that patient heart rate has been sustainin in the low 50's. Patient is awake and shows no signs of distress. No current orders, will continue to monitor.
[2024-12-30] MEDS: POTASSIUM CHLORIDE 20 mEq TABCR 40 MEQ PO (16:55)
[2024-12-30] MEDS: Magnesium Sulfate 2 GM Ivpb 2 GM/50 ML BAG IV (16:55)
[2024-12-30] MEDS: QUEtiapine FUMARATE 25 MG TABLET 50 MG PO (21:06)
[2024-12-30] MEDS: DIVALPROEX SOD DR 500 MG TABLET.DR PO (21:06)
[2024-12-30] MEDS: ATORVASTATIN CALCIUM 20 MG TABLET PO (21:06)
[2024-12-31] VITALS (10 sets, daily range): BP systolic 109–147; BP diastolic 59–77; PULSE 50–67; RESP 16–97; TEMP 36.1–37.2; O2SAT 95–98; BMI 12.0; BMI 18.7
[2024-12-31 05:56] LABS: Basophils % (Auto) 1 % (0-2.5); Eosinophils # (Auto) 0.1 Thou/mm3 (0.0-0.5); Eosinophils % (Auto) 2 % (0-10); Hemoglobin 11.8 g/dL (12.0-16.0); Immature Granulocytes % (Auto) 0 % (0-0); Immature Granulocytes Auto 0.03 Thou/mm3 (0.00-0.00); Lymphocytes # (Auto) 1.6 Thou/mm3 (1.0-4.8); Lymphocytes % (Auto) 20 % (10-50); Mean Corpuscular HGB Conc 32.8 g/dl (31.0-37.0); Mean Corpuscular Hemoglobin 29.8 pg (25.0-35.0); Mean Corpuscular Volume 91 fL (80-100); Monocytes # (Auto) 0.7 Thou/mm3 (0.0-0.8); Monocytes % (Auto) 9 % (0-12); Neutrophils # (Auto) 5.5 Thou/mm3 (1.8-7.7); Neutrophils % (Auto) 69 % (37-80); Nucleated Red Blood Cell % 0 /100 WBC (0); Platelet Count 212 Thou/mm3 (140-440); RDW Standard Deviation 41.2 fL (36.4-46.3); Red Blood Count 3.96 Miln/mm3 (4.00-5.20)
[2024-12-31 06:14] LABS: INR 1.1 (0.9-1.3); Prothrombin Time 11.5 Seconds (9.0-12.2)
[2024-12-31 06:38] LABS: Alanine Aminotransferase 41 U/L (10-49); Albumin, Serum 3.8 gm/dL (3.4-4.8); Alkaline Phosphatase 104 U/L (46-116); Anion Gap 11 (7-16); Aspartate Amino Transferase 42 U/L (0-34); BUN/Creatinine Ratio 17 Ratio (12-20); Bilirubin,Direct 0.5 mg/dL (0.0-0.3); Bilirubin,Total 1.4 mg/dL (0.3-1.2); Blood Urea Nitrogen 10 mg/dL (9-23); Calcium 8.2 mg/dL (8.3-10.6); Carbon Dioxide 28.4 mMol/L (20.0-31.0); Cardiac Risk Estimate 2.2 RATIO (3.7-5.6); Chloride 105 mMol/L (98-107); Cholesterol 71 mg/dL (132-200); Creatinine (Component) 0.6 mg/dL (0.6-1.3); Estimated Creatinine Clearance 63.3 mL/min (>60); Glucose 100 mg/dL (74-106); HDL Cholesterol 33 mg/dL (40-60); LDL Cholesterol,Calculated 19 mg/dL (0-130); Osmolality,Calculated 285 (275-295); Phosphorous 2.2 mg/dL (2.4-5.1); Potassium 3.7 mMol/L (3.4-5.1); Sodium 144 mMol/L (136-145); Total Protein 6.1 gm/dL (5.7-8.2); Triglycerides 93 mg/dL (30-150); eGFR > 60 See Note
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
--- NOTE | 2024-12-31 08:48 | PC.SS ---
Update: EEG is pending. Neurology recommendations pending.
[2024-12-31] MEDS: cefTRIAXone/D5w 1gm IV premix 1 GM/50 ML BAG IV (10:04)
[2024-12-31] MEDS: DIVALPROEX SOD DR 500 MG TABLET.DR PO ×2 (10:04→21:40)
[2024-12-31] MEDS: ESCITALOPRAM OXALATE 10 MG TABLET PO (10:04)
[2024-12-31] MEDS: HEPARIN SOD INJ 5000 UNIT/ML VIAL SC ×2 (10:04→21:42)
[2024-12-31] MEDS: NAPH,KPH MBDB 1 PACKET (1.5 GM) 2 PACKET PO (10:04)
--- NOTE | 2024-12-31 13:22 | PD.RESPRO ---
Documentation for date of: 12/31/24 Subjective Subjective Interval history: Patient was seen and examined by the bedside. Overnight patient was agitated, was awake during the night, soft wrist restraints were placed, removed in the morning. Urine culture grew gram negative alexey. During the day while being awake patient had HR in 40s. EKG showed sinus bradycardia, HR 46. Donepezil was put on hold. Patient worked with PT, patient tried to stand up, was unable to ambulate, had problems with following commands. Exam Vital Signs Temp Pulse Resp BP Pulse Ox O2 Del Method 98.9 F 58 L 23 H 138/59 H 96 Room Air 12/31/24 12:00 12/31/24 12:00 12/31/24 12:00 12/31/24 12:00 12/31/24 12:00 12/31/24 12:00 Narrative Exam Gen: Thin elderly female. Speech incomprehensible. HEENT: NCAT, PERRLA, EOMI, MMM, anicteric conjunctivae. CVS: normal S1 and S2. RRR. No M/R/G. Resp: CTA B/L. No rhonchi, rales, crackles or wheezing. Abd: soft, non-tender, non-distended. BS+ in all 4 quadrants. MSK: Good ROM in BUE & BLE. No edema or rash. Neuro: CN II-XII grossly intact. Does not follow commands.Patient does not answer questions appropriately. Psych: hard to assess, patient appears mildly confused but overall content. Objective Labs 01/01/25 04:29 01/01/25 04:29 Labs: Laboratory Results - last 24 hr 12/31/24 05:35 WBC 8.0 D RBC 3.96 L Hgb 11.8 L Hct 36.0 MCV 91 MCH 29.8 MCHC 32.8 RDW Std Deviation 41.2 Plt Count 212 Neut % (Auto) 69 Lymph % (Auto) 20 [place] % (Auto) 9 Eos % (Auto) 2 Baso % (Auto) 1 Neut # (Auto) 5.5 Lymph # (Auto) 1.6 [place] # (Auto) 0.7 Eos # (Auto) 0.1 Baso # (Auto) 0.0 Immature Gran # (Auto) 0.03 H Absolute Nucleated RBC 0.00 Immature Gran % 0 Nucleated RBC % 0 PT 11.5 INR 1.1 Sodium 144 Potassium 3.7 Chloride 105 Carbon Dioxide 28.4 Anion Gap 11 BUN 10 Creatinine 0.6 Estim Creat Clear Calc 63.3 eGFR > 60 BUN/Creatinine Ratio 17 Glucose 100 Calculated Osmolality 285 Calcium 8.2 L Phosphorus 2.2 L Magnesium 2.0 Total Bilirubin 1.4 H D Direct Bilirubin 0.5 H AST 42 H ALT 41 Alkaline Phosphatase 104 Total Protein 6.1 Albumin 3.8 D Triglycerides 93 Cholesterol 71 L LDL Cholesterol, Calc 19 HDL Cholesterol 33 L Cholesterol/HDL Ratio 2.2 L Quality Measures Quality Measures VTE prophylaxis Advance care planning discussed with:: other Assessment & Plan Assessment Current Active Medications: Generic Name Dose Route Start Last Admin Trade Name Freq PRN Reason Stop Dose Admin Acetaminophen 650 mg 12/30/24 05:33 Acetaminophen 325 Mg Tablet PO 01/29/25 05:32 Q6H PRN PAIN OR FEVER > 101 Atorvastatin Calcium 20 mg 12/30/24 21:00 12/30/24 21:06 Atorvastatin Calcium 20 Mg Tablet PO 01/29/25 20:59 20 mg HS OBDULIA Administration Atropine Sulfate 1 mg 12/30/24 16:38 Atropine Sulf Inj 0.1 Mg/Ml Syr 10 Ml IV 01/29/25 16:37 Q3MIN PRN symptomatic bradycardia Divalproex Sodium 500 mg 12/30/24 21:00 12/31/24 10:[address] 500 Mg Tablet.Dr PO 01/29/25 20:59 500 mg BID OBDULIA Administration Donepezil HCl 10 mg 12/30/24 09:45 12/30/24 10:07 Donepezil Hcl 5 Mg Tablet PO 01/29/25 09:44 10 mg QDAY OBDULIA Administration Escitalopram Oxalate 10 mg 12/30/24 09:45 12/31/24 10:04 Escitalopram Oxalate 10 Mg Tablet PO 01/29/25 09:44 10 mg QDAY OBDULIA Administration Heparin Sodium (Porcine) 5,000 unit 12/30/24 05:45 12/31/24 10:04 Heparin Sod Inj 5000 Unit/Ml Vial SC 01/13/25 05:44 5,000 unit Q12HR OBDULIA Administration Ceftriaxone Sodium/Dextrose 1 gm in 50 mls @ 100 mls/hr 12/30/24 05:37 12/31/24 10:04 Rocephin/D5w 1gm Iv Premix IV 01/06/25 05:36 100 mls/hr QDAY OBDULIA Administration Lorazepam 2 mg 12/30/24 05:33 Lorazepam 2 Mg/Ml Vial IVP 01/04/25 05:32 Q15MIN PRN SEIZURES Ondansetron HCl 4 mg 12/30/24 05:33 Ondansetron Inj 2 Mg/Ml Inj 2 Ml IV 01/29/25 05:32 Q6H PRN NAUSEA OR VOMITING Protocol Quetiapine Fumarate 50 mg 12/30/24 21:00 12/30/24 21:06 Quetiapine Fumarate 25 Mg Tablet PO 01/29/25 20:59 50 mg HS OBDULIA Administration Plan The patient is a 79-year-old female with a previous medical history of Alzheimer's disease, hypertension, AVM and brain aneurysms status post coiling who was brought in on 12/30/2024 due to episode of altered mentation with extension of her body and jerking movements afterwards that lasted less than 5 minutes. #New onset seizure #Provoked seizure #History of Alzheimer's disease #History of AVM, brain aneurysm s/p coiling Patient is predisposed to the seizures on the baselline due to chronical conditioins and UTI could have provoked it. MRI of the brain would not be informative due to artefacts from the coiling material. Plan: - Depakote 500 mg BID - donepezil on hold for now due to bradycardia - refrain from benzodiazepines, anticholinergics if possible - physical therapy - EEG showed left hemisphere slowing and epileptiform discharges - seizure precautions - Frequent reorientation - Family visitation - Natural sunlight during day hours - follow-up with Dr. Dumont in 2 weeks #Bradycardia #UTI #Diarrhea - management per primary team Plan of care discussed with attending Dr. Julia Evans MD, PGY 1. Attending Provider Attestation/Addendum I personally have seen and examined the patient at the bedside and I agree with resident's findings, assessment and plan of care. Will continue with the current management and no sz reported after being on Depakote. Noted minimal postural tremors, likely from VPA. waiting for placement.
--- NOTE | 2024-12-31 14:21 | PC.SS ---
Rounding Note: EEG planned for today. Urine culture pending. Neurology recommendation pending.
[2024-12-31] MEDS: POTASSIUM CHLORIDE 20 mEq TABCR 40 MEQ PO (14:38)
--- NOTE | 2024-12-31 15:48 | ECHO_ITS ---
Transthoracic Echo Report Ht (in): 64 Wt (lb): 112 Exam Location: Echo Lab Status: Inpatient Lamp Cleaner: Geeta He Indications: Procedure Performed: BP: 138 / 59 HR: 58 Technical Quality: Technically difficult study MEASUREMENTS (Male / Female) Normal Values 2D ECHO LV Ejection Fraction MOD BP 55.4 % >= 55 % LV Cardiac Index MOD BP 1513.8 cm?/min?m? LV Ejection Fraction MOD 4C 66.3 % LV Cardiac Index MOD 4C 1859.6 cm?/min?m? LV Ejection Fraction 4C AL 66.9 % LV Cardiac Index 4C AL 1967.0 cm?/min?m? LV Ejection Fraction MOD 2C 49.6 % LV Cardiac Index MOD 2C 1310.2 cm?/min?m? LV Ejection Fraction 2C AL 49.6 % LV Cardiac Index 2C AL 1337.1 cm?/min?m? LA Volume Index 26.8 cm?/m? 16 - 28 cm?/m? DOPPLER AV Peak Velocity 121.0 cm/s AV Peak Gradient 5.9 mmHg AV Mean Gradient 3.0 mmHg AV Velocity Time Integral 29.3 cm LVOT Peak Velocity 85.0 cm/s LVOT Peak Gradient 2.9 mmHg LVOT Velocity Time Integral 19.7 cm MV Area PHT 3.3 cm? MR Peak Velocity 365.0 cm/s MR Peak Gradient 53.3 mmHg Mitral E Point Velocity 56.8 cm/s Mitral A Point Velocity 87.3 cm/s Mitral E to A Ratio 0.7 LV E' Lateral Velocity 5.1 cm/s Mitral E to LV E' Lateral Ratio 11.1 LV E' Septal Velocity 4.6 cm/s Mitral E to LV E' Septal Ratio 12.4 TR Peak Velocity 262.0 cm/s TR Peak Gradient 27.5 mmHg FINDINGS Left Ventricle Normal left ventricular size, wall thickness, systolic function with no obvious regional wall motion abnormalities.The ejection fraction is visually estimated at 55-60 %. There is grade I diastolic dysfunction of the left ventricle (impaired relaxation pattern). Right Ventricle The right ventricle is normal in size and systolic function. The estimated right ventricular systolic pressure, 32 mmHg. RAP 5. Left Atrium The left atrium is normal by two-dimensional, color flow and Doppler imaging with no structural abnormalities, no thrombus formation present. Right Atrium The right atrium is normal by two-dimensional imaging, color flow and Doppler imaging with no structural abnormalities, no thrombus formation present. Atrial Septum The interatrial septum appears normal with no evidence of a shunt. Aorta The aorta is normal by two-dimensional, color flow and Doppler interrogation. Mitral Valve The mitral valve is normal by two-dimensional, color flow and Doppler interrogation. [id number] mitral regurgitation. Aortic Valve The aortic valve is trileaflet and normal by two-dimensional, color flow and Doppler interrogation. There is no significant aortic valve regurgitation. Tricuspid Valve The tricuspid valve is normal by two-dimensional, color flow and Doppler interrogation. There is mild tricuspid valve regurgitation. Pulmonic Valve The pulmonic valve is not well visualized. There is no significant pulmonic valve regurgitation. Vessels The pulmonary artery appears normal. The inferior vena cava pulmonary and hepatic veins appear normal. Pericardium The pericardium is normal by two-dimensional imaging. There is no significant pericardial effusion. CONCLUSIONS Indication: Bradycardia Normal left ventricular size and function. Estimated EF 60-65%. Grade I diastolic dysfunction. Normal RV size and systolic function. Estimated RVSP, 32 mmHg. Mild MR and mild MAC. Mild TR. Cyrus Diego (Electronically Signed) Final Date: 01 Jan 2025 00:00
--- NOTE | 2024-12-31 15:48 | PD.RESCONSUL ---
HPI Data of Consult Requesting Physician: Chapito Levy DO Admitting Provider: Maxi Ventura MD Attending Provider: Chapito Levy DO Primary Care Provider: Jaime Wahl MD Consult Narrative History of present illness: 79-year-old female PMHx of severe Alzheimer dementia, HTN, HLD,, calling of brain aneurysm, presenting with 3 weeks of progressively worsening mental status. History limited secondary to severe dementia. Reportedly, she has been experiencing worsening bowel and bladder incontinence over the last 3 weeks, reports several bowel movements over the past few days, consistent, mainly loose bowel. She has a history of shuffling gait, uses a walker at baseline, however has had multiple falls over the last week. Prior to coming in, she was in the midst of having a bowel movement, then experienced sudden whole body stiffening followed by generalized jerking movement, lasting about 2 minutes. This was followed by a short-lived episode of becoming unresponsive, also lasting few minutes. Denied fever, chills, headaches, chest pain, SOB, palpitations, visual changes, auditory changes, hallucination, previous history of seizures, abdominal pain, N/V/C, dysuria or hematuria. PMHx: As above. PSHx: Previous hip surgery, surgery for brain aneurysm, hysterectomy. Meds: ADDERALL 25 mg daily, LISINOPRIL 5 mg daily, CLONAZEPAM 1 mg BID, DONEPEZIL 10 mg daily, QUETIAPINE 50 mg HS, METFORMIN 500 daily, ESCITALOPRAM 10 mg daily, ATORVASTATIN 20 mg daily, ALENDRONATE 70 mg weekly. SHX: No history tobacco, drug or alcohol use. Initial workup showed BP 130/74, HR 69, afebrile, RR 21, satting well on room air. CBC showed WBC 15.8 with left shift, Hgb 13.2, PLT 212. Remarkable for GLUCOSE 146, TB 2.1, ALP 120. Normal coag studies, normal renal function, relatively normal liver enzymes, medium 2.0, potassium 3.7. UA suggestive of UTI. Head CT was negative for acute pathology. CXR showed no active disease. EKG showed sinus bradycardia, HR 46, nonspecific T wave abnormalities. She was admitted for acute encephalopathy and new onset seizure, likely provoked in settings of UTI. Cardiology was consulted for the management of bradycardia. Review of EKG from previous visit in 2019 and 2022 showed mostly sinus rhythm, without any bradycardia, however she did have sinus arrhythmia with short NM interval on multiple visits, as well as moderate intraventricular conduction delay and moderate ST depression on another visit. Today. EKG showing 130 NM interval. She is otherwise asymptomatic, without dizziness, palpitations, chest pain or shortness of breath. However, she is a poor historian as mentioned above secondary to severe dementia. Likely bradycardia related to DONEPEZIL and ATENOLOL, which primary team had discontinued appropriately. DONEPEZIL has a half-life of 70 hours, effect will last about 300 hours after discontinuing. Agree with ATROPINE PRN this time. Suspect HR will drop even further at night during sleep, may give ATROPINE if HR less than 40 and only if symptomatic. Will follow-up with echo to evaluate for wall motion or structural abnormalities. cc:: cc: Chapito Levy, DO Exam Vital Signs Temp Pulse Resp BP Pulse Ox O2 Del Method 98.9 F 58 L 23 H 138/59 H 96 Room Air 12/31/24 12:00 12/31/24 12:00 12/31/24 12:00 12/31/24 12:00 12/31/24 12:12/31/24 12:00 Narrative Exam GENERAL Normal appearing elderly female, NAD HEENT NCAT.?CHARISSA. Oral mucosa is moist. Patent Nares NECK Supple, nontender, no thyromegaly, no meningismus, no JVD, no step offs CHEST RRR, 3/6 aortic systolic murmur, no m/g. CTAB, no w/r/r. Symmetrical chest rise. No intercostal subcostal retraction Atraumatic, nontender, no crepitus, symmetrical expansion. ABDOMEN Soft, flat, nontender. No guarding/rebound tenderness/masses. Bowel sounds presents EXTREMITIES No edema/cyanosis.? SKIN Warm and dry, no jaundice/rashes. NEUROMUSCULAR Unable to assess 2/2 several dementia Normal mood and affect, cooperative, no SI or HI or hallucinations. Results Labs 01/01/25 04:29 01/01/25 04:29 Labs: Short CBC 12/31/24 Range/Units 05:35 WBC 8.0 D (3.6-11.0) Thou/mm3 Hgb 11.8 L (12.0-16.0) g/dL Hct 36.0 (36.0-46.0) % Plt Count 212 (140-440) Thou/mm3 BMP 12/31/24 05:35 Sodium 144 Potassium 3.7 Chloride 105 Carbon Dioxide 28.4 BUN 10 Creatinine 0.6 Glucose 100 Calcium 8.2 L Liver Function 12/31/24 Range/Units 05:35 Total Bilirubin 1.4 H D (0.3-1.2) mg/dL Direct Bilirubin 0.5 H (0.0-0.3) mg/dL AST 42 H (0-34) U/L ALT 41 (10-49) U/L Alkaline Phosphatase 104 (46-116) U/L Albumin 3.8 D (3.4-4.8) gm/dL Quality Measures Quality Measures VTE prophylaxis Advance care planning discussed with:: patient Medications Home Medications and Allergies Home Medications ?Medication ?Instructions ?Recorded ?Confirmed ?Type atenolol 25 mg tablet (Tenormin) 25 mg PO QDAY #0 tabs 06/09/15 12/30/24 History clonazepam 1 mg tablet (Klonopin) 1 mg PO BID #0 tabs 06/09/15 12/30/24 History Held on 07/12/22. Instructions: Resume on 07/13/22. lisinopril 5 mg tablet 5 mg PO QDAY #0 tabs 06/09/15 12/30/24 History escitalopram oxalate 10 mg tablet 10 mg PO QDAY 06/23/20 12/30/24 History atorvastatin 20 mg tablet 20 mg PO HS 12/19/22 12/30/24 History alendronate 70 mg tablet 70 mg PO QWEEK 12/30/24 12/30/24 History donepezil 10 mg tablet 10 mg PO QDAY 12/30/24 12/30/24 History metformin 500 mg tablet 500 mg PO QDAY 12/30/24 12/30/24 History quetiapine 50 mg tablet 50 mg PO HS 12/30/24 12/30/24 History Allergies Allergy/AdvReac Type Severity Reaction Status Date / Time bacitracin Allergy Intermediate BLISTERS Verified 12/29/24 23:46 gramicidin D Allergy Intermediate BLISTERS Verified 12/29/24 23:46 neomycin Allergy Intermediate BLISTERS Verified 12/29/24 23:46 polymyxin B Allergy Intermediate BLISTERS Verified 12/29/24 23:46 morphine Allergy Agitated Verified 12/30/24 10:00 Visit Medications Acetaminophen (Acetaminophen 325 Mg Tablet) 650 mg PO Q6H PRN PRN Reason: PAIN OR FEVER > 101 Stop: 01/29/25 05:32 Atorvastatin Calcium (Atorvastatin Calcium 20 Mg Tablet) 20 mg PO HS OBDULIA Stop: 01/29/25 20:59 Last Admin: 12/30/24 21:06 Dose: 20 mg Atropine Sulfate (Atropine Sulf Inj 0.1 Mg/Ml Syr 10 Ml) 1 mg IV Q3MIN PRN PRN Reason: symptomatic bradycardia Stop: 01/29/25 16:37 Divalproex Sodium (Divalproex Sod Dr 500 Mg Tablet.Dr) 500 mg PO BID OBDULIA Stop: 01/29/25 20:59 Last Admin: 12/31/24 10:04 Dose: 500 mg Donepezil HCl (Donepezil Hcl 5 Mg Tablet) 10 mg PO QDAY OBDULIA Stop: 01/29/25 09:44 Last Admin: 12/30/24 10:07 Dose: 10 mg Escitalopram Oxalate (Escitalopram Oxalate 10 Mg Tablet) 10 mg PO QDAY OBDULIA Stop: 01/29/25 09:44 Last Admin: 12/31/24 10:04 Dose: 10 mg Heparin Sodium (Porcine) (Heparin Sod Inj 5000 Unit/Ml Vial) 5,000 unit SC Q12HR OBDULIA Stop: 01/13/25 05:44 Last Admin: 12/31/24 10:04 Dose: 5,000 unit Ceftriaxone Sodium/Dextrose (Rocephin/D5w 1gm Iv Premix) 1 gm in 50 mls @ 100 mls/hr IV QDAY OBDULIA Stop: 01/06/25 05:36 Last Admin: 12/31/24 10:04 Dose: 100 mls/hr Lorazepam (Lorazepam 2 Mg/Ml Vial) 2 mg IVP Q15MIN PRN PRN Reason: SEIZURES Stop: 01/04/25 05:32 Ondansetron HCl (Ondansetron Inj 2 Mg/Ml Inj 2 Ml) 4 mg IV Q6H PRN; Protocol PRN Reason: NAUSEA OR VOMITING Stop: 01/29/25 05:32 Quetiapine Fumarate (Quetiapine Fumarate 25 Mg Tablet) 100 mg PO HS OBDULIA Stop: 01/30/25 20:59 Discontinued Medications Ceftriaxone Sodium/Dextrose (Rocephin/D5w 1gm Iv Premix) 1 gm in 50 mls @ 100 mls/hr IV X1 ONE Stop: 12/30/24 04:08 Last Infusion: 12/30/24 05:08 Dose: Infused Sodium Chloride (Ns) 500 mls @ 999 mls/hr IV .Q31M ONE Stop: 12/30/24 04:09 Last Infusion: 12/30/24 05:08 Dose: Infused Sodium Chloride (Ns) 1,000 mls @ 125 mls/hr IV .Q8H ONE Stop: 12/30/24 14:04 Last Admin: 12/30/24 07:43 Dose: 125 mls/hr Magnesium Sulfate (Magnesium Sulfate Ivpb) 2 gm in 50 mls @ 25 mls/hr IV X1 ONE Stop: 12/30/24 18:43 Last Admin: 12/30/24 16:55 Dose: 25 mls/hr Loperamide HCl (Loperamide 2 Mg Capsule) 2 mg PO Q6HR PRN PRN Reason: DIARRHEA Stop: 01/06/25 06:06 Lorazepam (Lorazepam 2 Mg/Ml Vial) 0.5 mg IVP X1 ONE Stop: 12/30/24 03:40 Last Admin: 12/30/24 05:53 Dose: Not Given Potassium Chloride (Potassium Chloride 20 Meq Tabcr) 40 meq PO X1 ONE Stop: 12/30/24 16:45 Last Admin: 12/30/24 16:55 Dose: 40 meq Potassium Chloride (Potassium Chloride 20 Meq Tabcr) 40 meq PO X1 ONE Stop: 12/31/24 13:16 Last Admin: 12/31/24 14:38 Dose: 40 meq Potassium Phos/Sodium Phos (Naph,[facility] Mbdb 1 Packet (1.5 Gm)) 2 packet PO X1 ONE Stop: 12/31/24 07:44 Last Admin: 12/31/24 10:04 Dose: 2 packet Quetiapine Fumarate (Quetiapine Fumarate 25 Mg Tablet) 50 mg PO HS OBDULIA Stop: 01/29/25 20:59 Last Admin: 12/30/24 21:06 Dose: 50 mg Sennosides (Senna Tablet) 2 tab PO BID PRN; Protocol PRN Reason: CONSTIPATION Stop: 01/29/25 05:32 Assessment & Plan Plan 79-year-old female PMHx of severe Alzheimer dementia, HTN, HLD,, calling of brain aneurysm, presenting with 3 weeks of progressively worsening mental status, admitted for new onset provoked seizure in setting of UTI. Cardiology consulted for bradycardia. Asymptomatic bradycardia Abnormal EKG The patient was admitted for acute encephalopathy and a new onset seizure, likely triggered by a UTI. Cardiology was consulted to manage bradycardia. EKGs from previous visits (2019 and 2022) showed mostly sinus rhythm with sinus arrhythmia, a short NM interval, moderate intraventricular conduction delay, and moderate ST depression. Today's EKG shows a NM interval of 130 ms. The patient is asymptomatic, with no dizziness, palpitations, chest pain, or shortness of breath, though her dementia makes her a poor historian. The bradycardia is likely related to the medications DONEPEZIL and ATENOLOL, which have been appropriately discontinued. Electrolytes are normal. DONEPEZIL has a long half-life, and its effects will last for up to 300 hours after stopping. ATROPINE is recommended PRN. The heart rate is expected to drop further at night, so ATROPINE may be given if the heart rate falls below 40 and the patient becomes symptomatic. An echo will be scheduled to assess for any structural heart issues. Maintain K > 4.0 and Mg > 2.0 Acute encephalopathy s/p postictal state, improving New onset seizure Hx of dementia Hypertension Hyperlipidemia Diarrhea, improving History of depression Management of rest of the medical conditions as per primary team and other consultants. Thank you for the consult and allowing me to participate in the care of the patient. Cardiology will continue to follow. Case was discussed with attending, Dr. Diego. Ramesh Dunbar DO PGYI Attending Provider Attestation/Addendum I have personally seen and examined the patient separately on the above date of service and discussed the plan of care with the resident. I reviewed the resident Dr. Ramesh Dunbar excellent consultation progress note and agree with the resident findings and plan in the note above and have also edited the documentation to reflect my findings and plan. A 79-year-old female with a past medical history of severe Alzheimer dementia, essential hypertension, hyperlipidemia, brain aneurysm status post coiling, anxiety, diabetes mellitus was brought into the emergency department for worsening mental status. Patient was admitted to the hospital and has she has not been doing well and was having bowel and bladder incontinence over the last few weeks and also has been having multiple falls. Patient does have history of unstable and shifting gait along with stiffening and involuntary body movements. Patient was admitted to the hospital for acute encephalopathy and to rule out seizures in the setting of a possible UTI. Patient was found to have significant bradycardia into the 40s on telemetry as well as the EKG and hence cardiology was consulted for further evaluation. EKG showed sinus bradycardia at 40 bpm and nonspecific T wave changes. Assessment and plan : 1. Severe bradycardia-asymptomatic 2. Abnormal EKG 3. Acute encephalopathy 4. Urinary tract infection 5. And possible new onset seizures 6. Severe dementia 7. Hypertension 8. Hyperlipidemia 9. Depression Review of the chart showed that the patient was on Exelon previously and also now is on donepezil or Aricept. EKG reviewed and showed sinus bradycardia without any acute ST-T changes. Recommend to completely stop the atenolol as well as donepezil for this patient. Given her severe dementia likely donepezil will be helping the patient with her symptoms and would cause more bradycardia in elderly patients with possible underlying sick sinus syndrome. Patient is can have prolonged bradycardia with daughter present given the long half-life. Pineda potassium greater than 4 manage greater than 2.0 at all times. Patient does have chronotropic response with passive exercise and heart rate is greater than 50 with it. Recommend avoiding Beta-blockers or calcium channel blockers or donepezil or neither medications could cause significant bradycardia. Continue to monitor on telemetry. Echocardiogram ordered to evaluate any kind of regional wall motion abnormalities, LV function and RV function and to rule out any kind of structural heart disease. Cyrus Diego M.D. Interventional Cardiology
--- NOTE | 2024-12-31 17:28 | PC.SS ---
PASSR completed. Level II Mental Health Evaluation referral is not required due to a Categorical Condition. On line PASSR closure is pending.
--- NOTE | 2024-12-31 17:37 | PC.SS ---
SNF referral submitted. Responses pending. Fadia Ridley preferred SNF.
--- NOTE | 2024-12-31 17:41 | PC.SS ---
FORMULA CHECKER conducted bedside contact with the patient conduct initial assessment and to discuss discharge planning.? At bedside with patient was spouse, Marty Eisenberg .? Spouse provided information for assessment and discharge planning.? Patient resides at home with spouse.? Patient utilizes a walker to assist with ambulation.? Patient does not use home oxygen.? Patient requires assistance with ADL?s.? Surrogate medical decision maker is spouse, Marty Eisenberg.? PCP is Dr. Wahl.? The patient does not possess any specialty providers.? The patient does not participate with dialysis nor does the patient possess diabetes.? Patient utilizes [facility] for medication services.? Discharge plan is for the patient to transition to SNF.? Preferred facility is [facility].? Patient possesses a history of depression.? director financial services to assist with arranging transportation on behalf of the patient. ?No further discharge needs identified by the patient?s spouse.? No further intervention required at this time, socially responsible investment adviser will be available to address any further concerns.? Next of Kin: Marty Eisenberg D/C Plan: SNF
[2024-12-31] MEDS: QUEtiapine FUMARATE 25 MG TABLET 100 MG PO (21:41)
[2024-12-31] MEDS: ATORVASTATIN CALCIUM 20 MG TABLET PO (21:41)
[2025-01-01] VITALS (10 sets, daily range): BP systolic 110–151; BP diastolic 62–95; PULSE 57–85; RESP 13–95; TEMP 36.1–37.3; O2SAT 93–98; BMI 13.0
[2025-01-01 05:47] LABS: Basophils % (Auto) 1 % (0-2.5); Eosinophils # (Auto) 0.1 Thou/mm3 (0.0-0.5); Eosinophils % (Auto) 2 % (0-10); Hematocrit 38.3 % (36.0-46.0); Hemoglobin 12.8 g/dL (12.0-16.0); Immature Granulocytes % (Auto) 0 % (0-0); Immature Granulocytes Auto 0.02 Thou/mm3 (0.00-0.00); Lymphocytes # (Auto) 1.7 Thou/mm3 (1.0-4.8); Lymphocytes % (Auto) 29 % (10-50); Mean Corpuscular HGB Conc 33.4 g/dl (31.0-37.0); Mean Corpuscular Hemoglobin 29.7 pg (25.0-35.0); Mean Corpuscular Volume 89 fL (80-100); Monocytes # (Auto) 0.5 Thou/mm3 (0.0-0.8); Monocytes % (Auto) 9 % (0-12); Neutrophils # (Auto) 3.4 Thou/mm3 (1.8-7.7); Neutrophils % (Auto) 60 % (37-80); Nucleated Red Blood Cell % 0 /100 WBC (0); Platelet Count 194 Thou/mm3 (140-440); RDW Standard Deviation 41.1 fL (36.4-46.3); Red Blood Count 4.31 Miln/mm3 (4.00-5.20); White Blood Count 5.8 Thou/mm3 (3.6-11.0)
[2025-01-01 06:05] LABS: Anion Gap 14 (7-16); BUN/Creatinine Ratio 17 Ratio (12-20); Blood Urea Nitrogen 10 mg/dL (9-23); Calcium 8.9 mg/dL (8.3-10.6); Carbon Dioxide 24.3 mMol/L (20.0-31.0); Chloride 106 mMol/L (98-107); Creatinine (Component) 0.6 mg/dL (0.6-1.3); Estimated Creatinine Clearance 63.3 mL/min (>60); Glucose 88 mg/dL (74-106); Magnesium 2.1 mg/dL (1.6-2.6); Osmolality,Calculated 284 (275-295); Phosphorous 3.9 mg/dL (2.4-5.1); Potassium 3.8 mMol/L (3.4-5.1); Sodium 144 mMol/L (136-145); eGFR > 60 See Note
[2025-01-01] MEDS: cefTRIAXone/D5w 1gm IV premix 1 GM/50 ML BAG IV (09:15)
[2025-01-01] MEDS: HEPARIN SOD INJ 5000 UNIT/ML VIAL SC ×2 (09:16→20:40)
[2025-01-01] MEDS: ESCITALOPRAM OXALATE 10 MG TABLET PO (09:16)
[2025-01-01] MEDS: DIVALPROEX SOD DR 500 MG TABLET.DR PO ×2 (09:16→20:32)
[2025-01-01] MEDS: POTASSIUM CHLORIDE 20 mEq TABCR PO (09:16)
--- NOTE | 2025-01-01 09:48 | ESPR_ITS ---
Documentation for date of: 01/01/25 Subjective Subjective Interval history: No acute overnight events. Appears more alert and awake today, still unable to obtain relevant history given severe dementia. However, pleasant mood, she does not appear in any acute distress. Bradycardia well-controlled, lowest HR 50 overnight, today, HR 75 during encounter. BP 151/88. CBC and CHEM panel unremarkable. Echo done yesterday showed EF 60-65%, grade 1 diastolic dysfunction, detailed report below. Continue with current management. Exam Vital Signs Temp Pulse Resp BP Pulse Ox O2 Del Method 97.7 F 58 L 18 151/88 H 93 L Room Air 01/01/25 07:55 01/01/25 07:55 01/01/25 07:55 01/01/25 07:55 01/01/25 07:55 01/01/25 07:55 Narrative Exam GENERAL * Normal appearing elderly female, NAD HEENT * NCAT.?CHARISSA. Oral mucosa is moist. Patent Nares NECK * Supple, nontender, no thyromegaly, no meningismus, no JVD, no step offs CHEST * RRR, 3/6 aortic systolic murmur, no m/g. * CTAB, no w/r/r. Symmetrical chest rise. No intercostal subcostal retraction * Atraumatic, nontender, no crepitus, symmetrical expansion. ABDOMEN * Soft, flat, nontender. No guarding/rebound tenderness/masses. * Bowel sounds presents EXTREMITIES * No edema/cyanosis.? SKIN * Warm and dry, no jaundice/rashes. NEUROMUSCULAR * Unable to assess 2/2 several dementia * Normal mood and affect, cooperative, no SI or HI or hallucinations. Objective Labs 01/01/25 04:29 01/01/25 04:29 Labs: Laboratory Results - last 24 hr 01/01/25 04:29 WBC 5.8 RBC 4.31 Hgb 12.8 Hct 38.3 MCV 89 MCH 29.7 MCHC 33.4 RDW Std Deviation 41.1 Plt Count 194 Neut % (Auto) 60 Lymph % (Auto) 29 [place] % (Auto) 9 Eos % (Auto) 2 Baso % (Auto) 1 Neut # (Auto) 3.4 Lymph # (Auto) 1.7 [place] # (Auto) 0.5 Eos # (Auto) 0.1 Baso # (Auto) 0.0 Immature Gran # (Auto) 0.02 H Absolute Nucleated RBC 0.00 Immature Gran % 0 Nucleated RBC % 0 Sodium 144 Potassium 3.8 Chloride 106 Carbon Dioxide 24.3 Anion Gap 14 BUN 10 Creatinine 0.6 Estim Creat Clear Calc 63.3 eGFR > 60 BUN/Creatinine Ratio 17 Glucose 88 Calculated Osmolality 284 Calcium 8.9 Phosphorus 3.9 Magnesium 2.1 Quality Measures Quality Measures VTE prophylaxis Advance care planning discussed with:: patient Assessment & Plan Assessment Current Active Medications: Generic Name Dose Route Start Last Admin Trade Name Freq PRN Reason Stop Dose Admin Acetaminophen 650 mg 12/30/24 05:33 Acetaminophen 325 Mg Tablet PO 01/29/25 05:32 Q6H PRN PAIN OR FEVER > 101 Atorvastatin Calcium 20 mg 12/30/24 21:00 12/31/24 21:41 Atorvastatin Calcium 20 Mg Tablet PO 01/29/25 20:59 20 mg HS OBDULIA Administration Atropine Sulfate 1 mg 12/30/24 16:38 Atropine Sulf Inj 0.1 Mg/Ml Syr 10 Ml IV 01/29/25 16:37 Q3MIN PRN symptomatic bradycardia Divalproex Sodium 500 mg 12/30/24 21:00 01/01/25 09:[address] 500 Mg Tablet.Dr PO 01/29/25 20:59 500 mg BID OBDULIA Administration Escitalopram Oxalate 10 mg 12/30/24 09:45 01/01/25 09:16 Escitalopram Oxalate 10 Mg Tablet PO 01/29/25 09:44 10 mg QDAY OBDULIA Administration Heparin Sodium (Porcine) 5,000 unit 12/30/24 05:45 01/01/25 09:16 Heparin Sod Inj 5000 Unit/Ml Vial SC 01/13/25 05:44 5,000 unit Q12HR OBDULIA Administration Ceftriaxone Sodium/Dextrose 1 gm in 50 mls @ 100 mls/hr 12/30/24 05:37 01/01/25 09:15 Rocephin/D5w 1gm Iv Premix IV 01/06/25 05:36 100 mls/hr QDAY OBDULIA Administration Lorazepam 2 mg 12/30/24 05:33 Lorazepam 2 Mg/Ml Vial IVP 01/04/25 05:32 Q15MIN PRN SEIZURES Ondansetron HCl 4 mg 12/30/24 05:33 Ondansetron Inj 2 Mg/Ml Inj 2 Ml IV 01/29/25 05:32 Q6H PRN NAUSEA OR VOMITING Protocol Quetiapine Fumarate 100 mg 12/31/24 21:00 12/31/24 21:41 Quetiapine Fumarate 25 Mg Tablet PO 01/30/25 20:59 100 mg HS OBDULIA Administration Plan 79-year-old female PMHx of severe Alzheimer dementia, HTN, HLD,, calling of brain aneurysm, presenting with 3 weeks of progressively worsening mental status, admitted for new onset provoked seizure in setting of UTI. Cardiology consulted for bradycardia. Asymptomatic bradycardia Abnormal EKG The patient was admitted for acute encephalopathy and a new onset seizure, likely triggered by a UTI. Cardiology was consulted to manage bradycardia. EKGs from previous visits (2019 and 2022) showed mostly sinus rhythm with sinus arrhythmia, a short OH interval, moderate intraventricular conduction delay, and moderate ST depression. Today's EKG shows a OH interval of 130 ms. The patient is asymptomatic, with no dizziness, palpitations, chest pain, or shortness of breath, though her dementia makes her a poor historian. The bradycardia is likely related to the medications DONEPEZIL and ATENOLOL, which have been appropriately discontinued. Electrolytes are normal. DONEPEZIL has a long half-life, and its effects will last for up to 300 hours after stopping. ATROPINE is recommended PRN. The heart rate is expected to drop further at night, so ATROPINE may be given if the heart rate falls below 40 and the patient becomes symptomatic. An echo will be scheduled to assess for any structural heart issues. Maintain K > 4.0 and Mg > 2.0 01/01/2025: Bradycardia improved. Labs unremarkable. Expect bradycardia will continue to improve over the next few days following stopping DONEPEZIL and ATENOLOL. BP slightly elevated, renal function normal, consider starting MANISH or ARB if no contraindications. Again no benefit of DONEPEZIL given severe dementia. Continue holding these medications as well as ATENOLOL or any other medications associated with bradycardia. Acute encephalopathy s/p postictal state, improving New onset seizure Hx of dementia Hypertension Hyperlipidemia Diarrhea, improving History of depression Management of rest of the medical conditions as per primary team and other consultants. Thank you for the consult and allowing me to participate in the care of the patient. Cardiology will continue to follow. Case was discussed with attending, Dr. Diego. Ramesh Dunbar DO PGYI Attending Provider Attestation/Addendum I have personally seen and examined the patient separately on the above date of service and discussed the plan of care with the resident. I reviewed the resident Dr. Ramesh Dunbar consultation progress note and agree with the resident findings and plan in the note above and have also edited the documentation to reflect my findings and plan. Cyrus Diego M.D. Interventional Cardiology
--- NOTE | 2025-01-01 12:00 | PC.SS ---
Addendum entered by FERDINAND Hazel 01/01/25 14:32: SS follow up: Ada at [facility] confirmed they will accept the patient at their facility tomorrow. Original Note: SS follow up: contacted [facility] to ensure they are able to accept the patient at their facility, was informed by staff they will review. Patient is pending 3 midnights stays per Medicare guidelines. Updated patient's and spouse at bedside.
[2025-01-01 12:26] LABS: Collection Type, Urine Clean Catch
[2025-01-01 12:32] LABS: Bilirubin,Urine Negative (Negative); Blood,Urine Negative (Negative); Clarity,Urine Clear (Clear/Hazy); Color,Urine Lt-Yellow (Lt Yel-Yel); Glucose, Urine Negative (Negative); Ketones,Urine 1+ (Negative); Leukocyte Esterase,Urine Negative (Negative); Nitrite,Urine Negative (Negative); Protein,Urine Negative (Neg - Trace); RBC,Urine 3 /hpf (0-3); Specific Gravity,Urine 1.017 (1.001-1.035); Squamous Epithelial Cell,Urine 1 /hpf (0-5); Urobilinogen,Urine Negative mg/dL (0.0-1.0); WBC,Urine 8 /hpf (0-5)
[2025-01-01 12:38] LABS: Amphetamine/Methamp Scrn,U Negative (Negative); Barbiturate Screen,Urine Negative (Negative); Benzodiazepines Screen,Urine Negative (Negative); Benzoylecgonine Screen, Ur Negative (Negative); Fentanyl Screen,Urine Negative (Negative); Opiate Screen,Urine Negative (Negative); THC Screen,Urine Negative (Negative)
--- NOTE | 2025-01-01 13:52 | PD.RESPRO ---
Documentation for date of: 01/01/25 Exam Vital Signs Temp Pulse Resp BP Pulse Ox O2 Del Method 97.4 F 85 23 H 131/76 H 95 Room Air 01/01/25 12:00 01/01/25 12:28 01/01/25 12:28 01/01/25 12:00 01/01/25 12:00 01/01/25 12:00 Objective Labs 01/02/25 05:42 01/02/25 05:42 Labs: Laboratory Results - last 24 hr 01/01/25 01/01/25 04:29 09:52 WBC 5.8 RBC 4.31 Hgb 12.8 Hct 38.3 MCV 89 MCH 29.7 MCHC 33.4 RDW Std Deviation 41.1 Plt Count 194 Neut % (Auto) 60 Lymph % (Auto) 29 [place] % (Auto) 9 Eos % (Auto) 2 Baso % (Auto) 1 Neut # (Auto) 3.4 Lymph # (Auto) 1.7 [place] # (Auto) 0.5 Eos # (Auto) 0.1 Baso # (Auto) 0.0 Immature Gran # (Auto) 0.02 H Absolute Nucleated RBC 0.00 Immature Gran % 0 Nucleated RBC % 0 Sodium 144 Potassium 3.8 Chloride 106 Carbon Dioxide 24.3 Anion Gap 14 BUN 10 Creatinine 0.6 Estim Creat Clear Calc 63.3 eGFR > 60 BUN/Creatinine Ratio 17 Glucose 88 Calculated Osmolality 284 Calcium 8.9 Phosphorus 3.9 Magnesium 2.1 Ur Collection Type Clean Catch Urine Color Lt-Yellow Urine Clarity Clear Urine pH 6.0 Ur Specific [place] 1.017 Urine Protein Negative Urine Glucose (UA) Negative Urine Ketones 1+ A Urine Blood Negative Urine Nitrite Negative Urine Bilirubin Negative Urine Urobilinogen (Auto) Negative Ur Leukocyte Esterase Negative Urine RBC 3 Urine WBC 8 H Ur Squamous Epith Cells 1 Urine Bacteria None Urine Opiates Screen Negative Urine Fentanyl Screen Negative Ur Barbiturates Screen Negative U Amphetamin/Meth Scrn Negative U Benzodiazepines Scrn Negative U Cocaine Metab Screen Negative U Marijuana (THC) Screen Negative Quality Measures Quality Measures VTE prophylaxis Advance care planning discussed with:: spouse Assessment & Plan Assessment Current Active Medications: Generic Name Dose Route Start Last Admin Trade Name Freq PRN Reason Stop Dose Admin Acetaminophen 650 mg 12/30/24 05:33 Acetaminophen 325 Mg Tablet PO 01/29/25 05:32 Q6H PRN PAIN OR FEVER > 101 Atorvastatin Calcium 20 mg 12/30/24 21:00 12/31/24 21:41 Atorvastatin Calcium 20 Mg Tablet PO 01/29/25 20:59 20 mg HS OBDULIA Administration Atropine Sulfate 1 mg 12/30/24 16:38 Atropine Sulf Inj 0.1 Mg/Ml Syr 10 Ml IV 01/29/25 16:37 Q3MIN PRN symptomatic bradycardia Divalproex Sodium 500 mg 12/30/24 21:00 01/01/25 09:[address] 500 Mg Tablet.Dr PO 01/29/25 20:59 500 mg BID OBDULIA Administration Escitalopram Oxalate 10 mg 12/30/24 09:45 01/01/25 09:16 Escitalopram Oxalate 10 Mg Tablet PO 01/29/25 09:44 10 mg QDAY OBDULIA Administration Heparin Sodium (Porcine) 5,000 unit 12/30/24 05:45 01/01/25 09:16 Heparin Sod Inj 5000 Unit/Ml Vial SC 01/13/25 05:44 5,000 unit Q12HR OBDULIA Administration Ceftriaxone Sodium/Dextrose 1 gm in 50 mls @ 100 mls/hr 12/30/24 05:37 01/01/25 09:15 Rocephin/D5w 1gm Iv Premix IV 01/06/25 05:36 100 mls/hr QDAY OBDULIA Administration Lorazepam 2 mg 12/30/24 05:33 Lorazepam 2 Mg/Ml Vial IVP 01/04/25 05:32 Q15MIN PRN SEIZURES Ondansetron HCl 4 mg 12/30/24 05:33 Ondansetron Inj 2 Mg/Ml Inj 2 Ml IV 01/29/25 05:32 Q6H PRN NAUSEA OR VOMITING Protocol Quetiapine Fumarate 100 mg 12/31/24 21:00 12/31/24 21:41 Quetiapine Fumarate 25 Mg Tablet PO 01/30/25 20:59 100 mg HS OBDULIA Administration
--- NOTE | 2025-01-01 13:57 | ESPR_ITS ---
Documentation for date of: 01/01/25 Subjective Subjective Interval history: No acute events overnight, vital signs stable, patient afebrile, pulse improved, 88 at time of bedside visit. Labs largely unremarkable. Patient out of restraints, she feels improved, at bedside also endorses the patient is improved. Exam Vital Signs Temp Pulse Resp BP Pulse Ox O2 Del Method 97.4 F 85 23 H 131/76 H 95 Room Air 01/01/25 12:00 01/01/25 12:28 01/01/25 12:28 01/01/25 12:00 01/01/25 12:00 01/01/25 12:00 Narrative Exam GENERAL APPEARANCE: NAD, resting comfortably HEENT: Normocephalic, atraumatic, extraocular movements intact NECK: Supple CARDIOVASULAR: NSR LUNGS/CHEST: CTA bilaterally ABDOMEN: Soft, nontender, with normal bowel sounds. EXTREMITIES: Normal inspection and palpation NEURO: Alert, awake Objective Labs 01/01/25 04:29 01/01/25 04:29 Labs: Laboratory Results - last 24 hr 01/01/25 01/01/25 04:29 09:52 WBC 5.8 RBC 4.31 Hgb 12.8 Hct 38.3 MCV 89 MCH 29.7 MCHC 33.4 RDW Std Deviation 41.1 Plt Count 194 Neut % (Auto) 60 Lymph % (Auto) 29 [place] % (Auto) 9 Eos % (Auto) 2 Baso % (Auto) 1 Neut # (Auto) 3.4 Lymph # (Auto) 1.7 [place] # (Auto) 0.5 Eos # (Auto) 0.1 Baso # (Auto) 0.0 Immature Gran # (Auto) 0.02 H Absolute Nucleated RBC 0.00 Immature Gran % 0 Nucleated RBC % 0 Sodium 144 Potassium 3.8 Chloride 106 Carbon Dioxide 24.3 Anion Gap 14 BUN 10 Creatinine 0.6 Estim Creat Clear Calc 63.3 eGFR > 60 BUN/Creatinine Ratio 17 Glucose 88 Calculated Osmolality 284 Calcium 8.9 Phosphorus 3.9 Magnesium 2.1 Ur Collection Type Clean Catch Urine Color Lt-Yellow Urine Clarity Clear Urine pH 6.0 Ur Specific [place] 1.017 Urine Protein Negative Urine Glucose (UA) Negative Urine Ketones 1+ A Urine Blood Negative Urine Nitrite Negative Urine Bilirubin Negative Urine Urobilinogen (Auto) Negative Ur Leukocyte Esterase Negative Urine RBC 3 Urine WBC 8 H Ur Squamous Epith Cells 1 Urine Bacteria None Urine Opiates Screen Negative Urine Fentanyl Screen Negative Ur Barbiturates Screen Negative U Amphetamin/Meth Scrn Negative U Benzodiazepines Scrn Negative U Cocaine Metab Screen Negative U Marijuana (THC) Screen Negative Quality Measures Quality Measures VTE prophylaxis Advance care planning discussed with:: spouse Assessment & Plan Assessment Current Active Medications: Generic Name Dose Route Start Last Admin Trade Name Freq PRN Reason Stop Dose Admin Acetaminophen 650 mg 12/30/24 05:33 Acetaminophen 325 Mg Tablet PO 01/29/25 05:32 Q6H PRN PAIN OR FEVER > 101 Atorvastatin Calcium 20 mg 12/30/24 21:00 12/31/24 21:41 Atorvastatin Calcium 20 Mg Tablet PO 01/29/25 20:59 20 mg HS OBDULIA Administration Atropine Sulfate 1 mg 12/30/24 16:38 Atropine Sulf Inj 0.1 Mg/Ml Syr 10 Ml IV 01/29/25 16:37 Q3MIN PRN symptomatic bradycardia Divalproex Sodium 500 mg 12/30/24 21:00 01/01/25 09:[address] 500 Mg Tablet.Dr PO 01/29/25 20:59 500 mg BID OBDULIA Administration Escitalopram Oxalate 10 mg 12/30/24 09:45 01/01/25 09:16 Escitalopram Oxalate 10 Mg Tablet PO 01/29/25 09:44 10 mg QDAY OBDULIA Administration Heparin Sodium (Porcine) 5,000 unit 12/30/24 05:45 01/01/25 09:16 Heparin Sod Inj 5000 Unit/Ml Vial SC 01/13/25 05:44 5,000 unit Q12HR OBDULIA Administration Ceftriaxone Sodium/Dextrose 1 gm in 50 mls @ 100 mls/hr 12/30/24 05:37 01/01/25 09:15 Rocephin/D5w 1gm Iv Premix IV 01/06/25 05:36 100 mls/hr QDAY OBDULIA Administration Lorazepam 2 mg 12/30/24 05:33 Lorazepam 2 Mg/Ml Vial IVP 01/04/25 05:32 Q15MIN PRN SEIZURES Ondansetron HCl 4 mg 12/30/24 05:33 Ondansetron Inj 2 Mg/Ml Inj 2 Ml IV 01/29/25 05:32 Q6H PRN NAUSEA OR VOMITING Protocol Quetiapine Fumarate 100 mg 12/31/24 21:00 12/31/24 21:41 Quetiapine Fumarate 25 Mg Tablet PO 01/30/25 20:59 100 mg HS OBDULIA Administration Plan Patient is a 79-year-old female with a past medical history of Alzheimer's dementia, hypertension, hyperlipidemia, coiling of brain aneurysms, who was admitted to the hospital due to concern for new onset seizures. #Acute encephalopathy s/p postictal state, improving #New onset seizure #Hx of dementia #Asymptomatic Bradycardia likely secondary to medication Plan: ? Neurology consulted, appreciate recs ? Continue Depakote 500 mg by mouth twice daily ? Lorazepam as needed for seizures ? Holding home donezepil ? Continue Seroquel 100 mg at bedtime ? Replete any electrolyte abnormalities ? PT ? Cardiology consulted, appreciate recommendations - Replete electrolytes as needed #UTI secondary to E. coli Plan: ? Ceftriaxone 1 g IV daily ? Follow urine culture #Hypertension #Hyperlipidemia Plan: ? Holding home atenolol in setting of bradycardia ? Resumed home Lipitor 20 mg at bedtime #Diarrhea, improving Plan: ? F/u stool culture and WBCs #History of depression Chronic Plan: ? Continue home Lexapro 10 mg #Health Maintenance Disposition: Likely DC on 12/13:23 midnight stay to SNF DVT prophylaxis: Heparin GI prophylaxis: None indicated at this time Diet: Regular CODE STATUS: Full Attending Provider Attestation/Addendum I have discussed and was present for the essential components of the history, physical examination, diagnosis, and treatment plan with the resident. I agree with the patient's care as documented by the resident and amended herein by me. Antonio Levy DO. Although this document has been carefully reviewed, there may still be some phonetic and other typographical errors. These errors are purely grammatical due to imperfections in the software program and should not be construed in any way to compromise the substance of the patient's medical care during this visit.
[2025-01-01 14:29] LABS: Stool for WBCs Negative (Negative)
--- NOTE | 2025-01-01 17:05 | ESPR_ITS ---
Documentation for date of: 01/01/25 Subjective Subjective Interval history: Patient was seen and examined by the bedside. No acute overnight events. Patient is eating in bed. Recorded HR is in the 70s-80s. She does not require restraints, was able to work with pphysical therapy. Overall, appears content. No sezires reported overnight. Exam Vital Signs Temp Pulse Resp BP Pulse Ox O2 Del Method 98.1 F 75 19 114/62 96 Room Air 01/01/25 16:00 01/01/25 16:00 01/01/25 16:00 01/01/25 16:00 01/01/25 16:00 01/01/25 16:00 Narrative Exam Gen: Thin elderly female. Speech incomprehensible. HEENT: NCAT, PERRLA, EOMI, MMM, anicteric conjunctivae. CVS: normal S1 and S2. RRR. No M/R/G. Resp: CTA B/L. No rhonchi, rales, crackles or wheezing. Abd: soft, non-tender, non-distended. BS+ in all 4 quadrants. MSK: Good ROM in BUE & BLE. No edema or rash. Neuro: CN II-XII grossly intact. Does not follow commands.Patient does not answer questions appropriately. Psych: hard to assess, patient appears mildly confused but overall content. Objective Labs 01/01/25 04:29 01/01/25 04:29 Labs: Laboratory Results - last 24 hr 01/01/25 01/01/25 01/01/25 04:29 09:52 12:36 WBC 5.8 RBC 4.31 Hgb 12.8 Hct 38.3 MCV 89 MCH 29.7 MCHC 33.4 RDW Std Deviation 41.1 Plt Count 194 Neut % (Auto) 60 Lymph % (Auto) 29 [place] % (Auto) 9 Eos % (Auto) 2 Baso % (Auto) 1 Neut # (Auto) 3.4 Lymph # (Auto) 1.7 [place] # (Auto) 0.5 Eos # (Auto) 0.1 Baso # (Auto) 0.0 Immature Gran # (Auto) 0.02 H Absolute Nucleated RBC 0.00 Immature Gran % 0 Nucleated RBC % 0 Sodium 144 Potassium 3.8 Chloride 106 Carbon Dioxide 24.3 Anion Gap 14 BUN 10 Creatinine 0.6 Estim Creat Clear Calc 63.3 eGFR > 60 BUN/Creatinine Ratio 17 Glucose 88 Calculated Osmolality 284 Calcium 8.9 Phosphorus 3.9 Magnesium 2.1 Ur Collection Type Clean Catch Urine Color Lt-Yellow Urine Clarity Clear Urine pH 6.0 Ur Specific [place] 1.017 Urine Protein Negative Urine Glucose (UA) Negative Urine Ketones 1+ A Urine Blood Negative Urine Nitrite Negative Urine Bilirubin Negative Urine Urobilinogen (Auto) Negative Ur Leukocyte Esterase Negative Urine RBC 3 Urine WBC 8 H Ur Squamous Epith Cells 1 Urine Bacteria None Stool for White Cells Negative Urine Opiates Screen Negative Urine Fentanyl Screen Negative Ur Barbiturates Screen Negative U Amphetamin/Meth Scrn Negative U Benzodiazepines Scrn Negative U Cocaine Metab Screen Negative U Marijuana (THC) Screen Negative Quality Measures Quality Measures VTE prophylaxis Advance care planning discussed with:: other Assessment & Plan Assessment Current Active Medications: Generic Name Dose Route Start Last Admin Trade Name Freq PRN Reason Stop Dose Admin Acetaminophen 650 mg 12/30/24 05:33 Acetaminophen 325 Mg Tablet PO 01/29/25 05:32 Q6H PRN PAIN OR FEVER > 101 Atorvastatin Calcium 20 mg 12/30/24 21:00 12/31/24 21:41 Atorvastatin Calcium 20 Mg Tablet PO 01/29/25 20:59 20 mg HS OBDULIA Administration Atropine Sulfate 1 mg 12/30/24 16:38 Atropine Sulf Inj 0.1 Mg/Ml Syr 10 Ml IV 01/29/25 16:37 Q3MIN PRN symptomatic bradycardia Divalproex Sodium 500 mg 12/30/24 21:00 01/01/25 09:[address] 500 Mg Tablet.Dr PO 01/29/25 20:59 500 mg BID OBDULIA Administration Escitalopram Oxalate 10 mg 12/30/24 09:45 01/01/25 09:16 Escitalopram Oxalate 10 Mg Tablet PO 01/29/25 09:44 10 mg QDAY OBDULIA Administration Heparin Sodium (Porcine) 5,000 unit 12/30/24 05:45 01/01/25 09:16 Heparin Sod Inj 5000 Unit/Ml Vial SC 01/13/25 05:44 5,000 unit Q12HR OBDULIA Administration Ceftriaxone Sodium/Dextrose 1 gm in 50 mls @ 100 mls/hr 12/30/24 05:37 01/01/25 09:15 Rocephin/D5w 1gm Iv Premix IV 01/06/25 05:36 100 mls/hr QDAY OBDULIA Administration Lorazepam 2 mg 12/30/24 05:33 Lorazepam 2 Mg/Ml Vial IVP 01/04/25 05:32 Q15MIN PRN SEIZURES Ondansetron HCl 4 mg 12/30/24 05:33 Ondansetron Inj 2 Mg/Ml Inj 2 Ml IV 01/29/25 05:32 Q6H PRN NAUSEA OR VOMITING Protocol Quetiapine Fumarate 100 mg 12/31/24 21:00 12/31/24 21:41 Quetiapine Fumarate 25 Mg Tablet PO 01/30/25 20:59 100 mg HS OBDULIA Administration Plan The patient is a 79-year-old female with a previous medical history of Alzheimer's disease, hypertension, AVM and brain aneurysms status post coiling who was brought in on 12/30/2024 due to episode of altered mentation with extension of her body and jerking movements afterwards that lasted less than 5 minutes. #New onset seizure #Provoked seizure #History of Alzheimer's disease #History of AVM, brain aneurysm s/p coiling Patient is predisposed to the seizures on the baselline due to chronical conditioins and UTI could have provoked it. MRI of the brain would not be informative due to artefacts from the coiling material. Plan: - Depakote 500 mg BID - donepezil on hold for now due to bradycardia - refrain from benzodiazepines, anticholinergics if possible - physical therapy - EEG showed left hemisphere slowing and epileptiform discharges - seizure precautions - Frequent reorientation - Family visitation - Natural sunlight during day hours - follow-up with Dr. Dumont in 2 weeks #Bradycardia #UTI #Diarrhea - management per primary team Plan of care discussed with attending Dr. Julia Evans MD, PGY 1. Attending Provider Attestation/Addendum I personally have seen and examined the patient at the bedside and I agree with resident's findings, assessment and plan of care. Will continue with the current management, stable on VPA. No sz since admission. Waiting for transfer to [facility].
[2025-01-01] MEDS: ATORVASTATIN CALCIUM 20 MG TABLET PO (20:27)
[2025-01-01] MEDS: QUEtiapine FUMARATE 25 MG TABLET 100 MG PO (20:32)
[2025-01-02] VITALS (9 sets, daily range): BP systolic 108–140; BP diastolic 64–85; PULSE 63–103; RESP 20–95; TEMP 36.4–37.4; O2SAT 94–98; BMI 19.2
[2025-01-02 06:16] LABS: Basophils % (Auto) 0 % (0-2.5); Eosinophils # (Auto) 0.2 Thou/mm3 (0.0-0.5); Eosinophils % (Auto) 1 % (0-10); Hemoglobin 13.4 g/dL (12.0-16.0); Immature Granulocytes % (Auto) 1 % (0-0); Immature Granulocytes Auto 0.07 Thou/mm3 (0.00-0.00); Lymphocytes # (Auto) 1.6 Thou/mm3 (1.0-4.8); Lymphocytes % (Auto) 13 % (10-50); Mean Corpuscular HGB Conc 33.5 g/dl (31.0-37.0); Mean Corpuscular Hemoglobin 29.9 pg (25.0-35.0); Mean Corpuscular Volume 89 fL (80-100); Monocytes # (Auto) 1.3 Thou/mm3 (0.0-0.8); Monocytes % (Auto) 10 % (0-12); Neutrophils # (Auto) 9.3 Thou/mm3 (1.8-7.7); Neutrophils % (Auto) 75 % (37-80); Nucleated Red Blood Cell % 0 /100 WBC (0); Platelet Count 234 Thou/mm3 (140-440); RDW Standard Deviation 41.8 fL (36.4-46.3); Red Blood Count 4.48 Miln/mm3 (4.00-5.20); White Blood Count 12.5 Thou/mm3 (3.6-11.0)
[2025-01-02 06:39] LABS: Anion Gap 11 (7-16); BUN/Creatinine Ratio 23 Ratio (12-20); Blood Urea Nitrogen 16 mg/dL (9-23); Calcium 8.5 mg/dL (8.3-10.6); Carbon Dioxide 27.4 mMol/L (20.0-31.0); Chloride 102 mMol/L (98-107); Creatinine (Component) 0.7 mg/dL (0.6-1.3); Estimated Creatinine Clearance 55.7 mL/min (>60); Glucose 94 mg/dL (74-106); Magnesium 1.8 mg/dL (1.6-2.6); Osmolality,Calculated 280 (275-295); Potassium 3.3 mMol/L (3.4-5.1); Sodium 140 mMol/L (136-145); eGFR > 60 See Note
--- NOTE | 2025-01-02 08:01 | PC.SS ---
Addendum entered by FERDINAND Hazel 01/02/25 14:25: Received call back informing that [facility] will be closed as NO SMI. Original Note: SS follow up: contacted [facility] and spoke with Douglas Best to inform [facility] needs to be reviewed for closure before d/c to SNF. Douglas to follow up and provide call back, contact number provided.
[2025-01-02] MEDS: DIVALPROEX SOD DR 500 MG TABLET.DR PO ×2 (08:56→21:19)
[2025-01-02] MEDS: ESCITALOPRAM OXALATE 10 MG TABLET PO (08:56)
[2025-01-02] MEDS: POTASSIUM CHLORIDE 20 mEq TABCR 40 MEQ PO (08:56)
[2025-01-02] MEDS: cefTRIAXone/D5w 1gm IV premix 1 GM/50 ML BAG IV (08:57)
[2025-01-02] MEDS: POTASSIUM CHL 10 mEq IVPB 10 MEQ/100 ML BAG 100 MEQ IV ×4 (08:57→15:09)
[2025-01-02] MEDS: HEPARIN SOD INJ 5000 UNIT/ML VIAL SC ×2 (08:58→21:20)
[2025-01-02] MEDS: Magnesium Sulfate 2 GM Ivpb 2 GM/50 ML BAG IV (09:48)
--- NOTE | 2025-01-02 11:05 | ESDS_ITS ---
Planned Discharge Date 01/02/25 DS: Providers Provider Date of admission: 12/30/24 04:26 Primary care physician: Jaime Wahl MD Admitting Provider: Maxi Ventura MD Attending Provider on Admission: Chapito Levy DO Consults: 12/30/24 05:34 Consult to Neurology / Tele-Neurology Urgent Comment: Consulting Provider: Juan Dumont Referral Physical Therapy Routine Comment: Physician Instructions: 12/31/24 14:12 Consult to Cardiology Routine Comment: asymptomatic bradycardia Consulting Provider: Cyrus Diego Attending Provider on DC: Chapito Levy DO Discharging Provider: Chapito Levy DO DS: Diagnosis Problem List Completed Was Problem List Reviewed/Reconciled?: Yes Hospital Course Hospital Course Hospital course: Yumiko is a 79-year-old female with a past medical history of Alzheimer's dementia, hypertension, hyperlipidemia, coiling of brain aneurysms who was admitted to [facility] on December 30, 2024 for acute encephalopathy secondary to new onset seizures and asymptomatic bradycardia. Patient had to arrived to the ED with a blood pressure 130/74, respiratory 21, pulse rate 69, afebrile, saturating well on room air. Pt had leukocytosis, normal renal and liver function, UA positive for UTI. Chest x-ray was negative for evidence of pneumonia. EKG showed sinus bradycardia heart rate 59, CT head was ordered which showed no evidence of intracranial hemorrhage, mass effect or midline shift. Medicine was consulted patient admitted to the floors. While on the floors, neurology, Dr. Dumont was consulted. Patient had EEG which showed left hemispheric slowing and epileptic form changes. He was then put on Depakote 500 mg twice daily and recommended to follow-up outpatient in 2 weeks. Patient also started to have bradycardia. Bradycardia had started after patient was given her donezepil. Cardiology was consulted for bradycardia who had recommended to continue to treat UTI and discontinue donezepil. Patient was instructed to stop donezepil and be continued treatment for UTI. Patient also had stool cultures because patient had an episode of diarrhea and they were ordered, however they were negative. Physical therapy had recommended for patient to go to SNF in which patient and patient's family is agreeable. With patient's clinical improvement, patient was then discharged with the following instructions. Discharge Instructions: Follow up with your PCP within one week Follow up with Neurology, Dr. Dumont within two weeks Follow up with Cardiology within two weeks We are discontinuing your donezepil at this time due to low heart rate We are holding your Atenolol at this time due to low heart rate, resume with your PCP if warranted. Take medicines as prescribed Take Augmentin, your antibiotic and finish this course as prescribed Take your new seizure medicine Divalproex as prescribed We have increased your Seroquel to 100 mg, take as prescribed Return to ER if your symptoms return Problem List: #Acute encephalopathy s/p postictal state, improving #New onset seizure #Hx of dementia #Asymptomatic Bradycardia likely secondary to medication #UTI secondary to E. coli #Hypertension #Hyperlipidemia #Diarrhea, improving #History of depression Discharge summary was reviewed with my attending Dr. Cam Mcnulty, PGY-1 Time Spent with Patient Time attestation: Total time spent providing and/or coordinating discharge services: Time spent: Greater than 30 minutes Exam Vital Signs Temp Pulse Resp BP Pulse Ox O2 Del Method 97.7 F 75 23 H 139/85 H 98 Room Air 01/02/25 07:45 01/02/25 07:45 01/02/25 07:45 01/02/25 07:45 01/02/25 07:45 01/02/25 07:45 Narrative Exam General: AAOx1, NAD, pleasant, patient is not always alert to time and place, frail HEENT: Moist mucous membranes, conjunctiva clear, EOMI, PERRLA, Cardiovascular: S1, S2, radial pulses +2 bilat, RRR Pulmonary: CTAB bilat no cough, no wheezing GI: No tenderness to light or deep palpitation, no guarding, rigidity, rebound tenderness or distension Extremities: No presence of trace or pitting edema in lower extremities bilaterally, dorsalis pedis pulses +2 bilaterally Neuro: AAOx1, no focal motor or sensory deficits in the UE or LE bilat, sometimes sentences she says does not make sense Psych: Good judgement, thought and behavior. Cooperative Discharge Plan Plan Patient Disposition: Xfer Skilled Nsg Fac (SNF) Patient condition on transfer: Stable and Benefits outweigh risks Care Plan Goals: Discharge Instructions: Follow up with your PCP within one week Follow up with Neurology, Dr. Dumont within two weeks Follow up with Cardiology within two weeks for your slow heart beat. You may need a holter monitor We are discontinuing your donezepil at this time due to low heart rate We are holding your Atenolol at this time due to low heart rate, resume with your PCP if warranted. Take medicines as prescribed Take Augmentin, your antibiotic, for two more days to finish this course Take your new seizure medicine Divalproex as prescribed We have increased your Seroquel to 100 mg, take as prescribed Return to ER if your symptoms return Prescriptions/Referrals Prescriptions/Med Rec: New divalproex 500 mg Tablet,Delayed Release (Dr/Ec) 500 mg PO BID 14 Days Qty: 28 0RF quetiapine 100 mg tablet 100 mg PO QDAY 30 Days Qty: 30 0RF Rx Instructions: Take one tablet by mouth at night amoxicillin-pot clavulanate 875-125 mg tablet 1 tab PO BID 2 Days Qty: 4 0RF Rx Instructions: Take one tablet by mouth twice a day Continued lisinopril 5 MG tablet 5 mg PO QDAY Qty: 0 escitalopram oxalate 10 mg Tablet 10 mg PO QDAY atorvastatin 20 mg tablet 20 mg PO HS metformin 500 mg tablet 500 mg PO QDAY Patient Comments: TAKE 1 TABLET ONCE DAILY WITH A MEAL FOR DIABETES alendronate 70 mg tablet 70 mg PO QWEEK Patient Comments: TAKE 1 TABLET ONCE WEEKLY 30 MINUTES BEFORE THE FIRST FOOD, BEVERAGE OR MEDICINE OF THE DAY WITH PLAIN WATER Discontinued clonazepam [Klonopin] 1 MG tablet 1 mg PO BID Qty: 0 atenolol [Tenormin] 25 MG tablet 25 mg PO QDAY Qty: 0 donepezil 10 mg tablet 10 mg PO QDAY Patient Comments: TAKE 1 TABLET AT BEDTIME FOR MEMORY quetiapine 50 mg tablet 50 mg PO HS Patient Comments: take 1 tablet by mouth at bedtime for AGITATION Referrals: Jaime Wahl MD [Primary Care Provider] - Patient/Caregiver Discharge Instructions Discharge Activity: as per physical therapy Education Materials: Anatomy of the Female Urinary Tract, Urinary Tract Infections in Women, Understanding Urinary Tract ..., Dementia Caregiver Tips, Delirium & Dementia Difference, Understanding Bradycardia Print Language: Mohawk Stand Alone Forms: [employer] Award Info., Patient Portal Info Letter Discharge Order Discharge Orders: Discharge (Routine); Ordered 01/04/25 Ordered By: Irizarry Alsharafi Quality Discharge Quality Measures VTE prophylaxis (Heparin) MD Attestestation MD Attestation Patient not discharged today as expected, on 01/02, stool culture still pending
--- NOTE | 2025-01-02 11:45 | PC.SS ---
Addendum entered by FERDINAND Hazel 01/02/25 14:38: Updated patient's spouse, Marty Eisenberg to make aware of current status, he verbalized understanding. Addendum entered by FERDINAND Hazel 01/02/25 14:24: Rounding note: stool cultures pending. [facility] concerned for CDiff due to possible need for isolation room. Medical team aware. Ada at [facility] informs they can accept the patient over the weekend after cultures have been received and cleared with their infection prevention staff. Original Note: SS follow up: Patient had DC orders, however [facility] is requesting to hold off on discharge until stool cultures have been received. Currently cultures are pending. Bed side nurse Kathryn is aware.
--- NOTE | 2025-01-02 16:38 | ESPR_ITS ---
Documentation for date of: 01/02/25 Subjective Subjective Interval history: Patient examined at bedside. No acute overnight events. Patient reports she is ready to go home. Currently pending authorization from care home facility. No other complaints this time Exam Vital Signs Temp Pulse Resp BP Pulse Ox O2 Del Method 99.4 F 79 25 H 124/67 94 L Room Air 01/02/25 16:00 01/02/25 16:00 01/02/25 16:00 01/02/25 16:00 01/02/25 16:00 01/02/25 16:00 Narrative Exam General: AAOx1, NAD, pleasant, patient is not always alert to time and place, frail HEENT: Moist mucous membranes, conjunctiva clear, EOMI, PERRLA, Cardiovascular: S1, S2, radial pulses +2 bilat, RRR Pulmonary: CTAB bilat no cough, no wheezing GI: No tenderness to light or deep palpitation, no guarding, rigidity, rebound tenderness or distension Extremities: No presence of trace or pitting edema in lower extremities bilaterally, dorsalis pedis pulses +2 bilaterally Neuro: AAOx1, no focal motor or sensory deficits in the UE or LE bilat, sometimes sentences she says does not make sense Psych: Good judgement, thought and behavior. Cooperative Objective Labs 01/02/25 05:42 01/02/25 05:42 Labs: Laboratory Results - last 24 hr 01/02/25 05:42 WBC 12.5 H D RBC 4.48 Hgb 13.4 Hct 40.0 MCV 89 MCH 29.9 MCHC 33.5 RDW Std Deviation 41.8 Plt Count 234 D Neut % (Auto) 75 Lymph % (Auto) 13 [place] % (Auto) 10 Eos % (Auto) 1 Baso % (Auto) 0 Neut # (Auto) 9.3 H Lymph # (Auto) 1.6 [place] # (Auto) 1.3 H Eos # (Auto) 0.2 Baso # (Auto) 0.0 Immature Gran # (Auto) 0.07 H Absolute Nucleated RBC 0.00 Immature Gran % 1 H Nucleated RBC % 0 Sodium 140 Potassium 3.3 L D Chloride 102 Carbon Dioxide 27.4 Anion Gap 11 BUN 16 Creatinine 0.7 Estim Creat Clear Calc 55.7 L eGFR > 60 BUN/Creatinine Ratio 23 H Glucose 94 Calculated Osmolality 280 Calcium 8.5 Magnesium 1.8 Quality Measures Quality Measures VTE prophylaxis (Heparin) Advance care planning discussed with:: patient Assessment & Plan Assessment Current Active Medications: Generic Name Dose Route Start Last Admin Trade Name Freq PRN Reason Stop Dose Admin Acetaminophen 650 mg 12/30/24 05:33 Acetaminophen 325 Mg Tablet PO 01/29/25 05:32 Q6H PRN PAIN OR FEVER > 101 Atorvastatin Calcium 20 mg 12/30/24 21:00 01/01/25 20:27 Atorvastatin Calcium 20 Mg Tablet PO 01/29/25 20:59 20 mg HS OBDULIA Administration Atropine Sulfate 1 mg 12/30/24 16:38 Atropine Sulf Inj 0.1 Mg/Ml Syr 10 Ml IV 01/29/25 16:37 Q3MIN PRN symptomatic bradycardia Divalproex Sodium 500 mg 12/30/24 21:00 01/02/25 08:[address] 500 Mg Tablet.Dr PO 01/29/25 20:59 500 mg BID OBDULIA Administration Escitalopram Oxalate 10 mg 12/30/24 09:45 01/02/25 08:56 Escitalopram Oxalate 10 Mg Tablet PO 01/29/25 09:44 10 mg QDAY OBDULIA Administration Heparin Sodium (Porcine) 5,000 unit 12/30/24 05:45 01/02/25 08:58 Heparin Sod Inj 5000 Unit/Ml Vial SC 01/13/25 05:44 5,000 unit Q12HR OBDULIA Administration Ceftriaxone Sodium/Dextrose 1 gm in 50 mls @ 100 mls/hr 12/30/24 05:37 01/02/25 08:57 Rocephin/D5w 1gm Iv Premix IV 01/06/25 05:36 100 mls/hr QDAY OBDULIA Administration Lorazepam 2 mg 12/30/24 05:33 Lorazepam 2 Mg/Ml Vial IVP 01/04/25 05:32 Q15MIN PRN SEIZURES Ondansetron HCl 4 mg 12/30/24 05:33 Ondansetron Inj 2 Mg/Ml Inj 2 Ml IV 01/29/25 05:32 Q6H PRN NAUSEA OR VOMITING Protocol Quetiapine Fumarate 100 mg 12/31/24 21:00 01/01/25 20:32 Quetiapine Fumarate 25 Mg Tablet PO 01/30/25 20:59 100 mg HS OBDULIA Administration Plan Assessment Patient is a 79-year-old female with a past medical history of Alzheimer's dementia, hypertension, hyperlipidemia, coiling of brain aneurysms, who was admitted to the hospital due to concern for new onset seizures. #Acute encephalopathy s/p postictal state, improving #New onset seizure #Hx of dementia #Asymptomatic Bradycardia, improving Patient heart rate has improved, patient maintains around the 80s Patient will need to hold atenolol once discharge Patient will need Depakote level monitoring outpatient EEG was abnormal and showed left hemispheric slowing and epileptiform changes Plan: ? Neurology consulted, appreciate recs ? Depakote 500 mg by mouth twice daily ? Discontinue donezepil ? Seroquel 100 mg at bedtime ? Replete any electrolyte abnormalities ? PT ? Cardiology Consulted, appreciate recs #Hypophosphatemia, resolved #UTI Urine culture shows pansensitive E. coli Plan: ? Ceftriaxone 1 g IV daily ? Will transition to p.o. upon DC #Hypertension #Hyperlipidemia Chronic Plan: ? Holding beta-kyler upon discharge ? Resumed home Lipitor 20 mg at bedtime #Diarrhea, resolved Patient is pending stool culture, once this is negative patient will be able to go to SNF SNF is not accepting patient once stool culture has resulted despite patient not being on antibiotics previously and C. difficile has not been tested on this patient as we had low suspicion for C. difficile Stool WBCs are unremarkable Plan: ? F/u stool culture #History of depression Chronic Plan: ? Continue home Lexapro 10 mg #Health Maintenance Disposition: Telemetry, pending discharge to SNF upon stool culture results DVT prophylaxis: Heparin GI prophylaxis: None indicated at this time Diet: Regular CODE STATUS: Full Patient seen and care discussed with my attending physician, Dr. Cam Mcnulty, PGY-1 Attending Provider Attestation/Addendum I have discussed and was present for the essential components of the history, physical examination, diagnosis, and treatment plan with the resident. I agree with the patient's care as documented by the resident and amended herein by me. Antonio Levy DO. Although this document has been carefully reviewed, there may still be some phonetic and other typographical errors. These errors are purely grammatical due to imperfections in the software program and should not be construed in any way to compromise the substance of the patient's medical care during this visit.
--- NOTE | 2025-01-02 17:10 | ESPR_ITS ---
Documentation for date of: 01/02/25 Subjective Subjective Interval history: No acute events. Denies fever, chills, headaches, chest pain, sob, cough, GI or urinary symptoms. Bradycardia resolved, HR around 70s, she had 2 incidents of nonsustained HR 102, and 103 respectively. Normotensive. Potassium 3.3, magnesium 1.8, repleted. Remainder CMP WNL. WBC 12.5, afebrile, likely reactive. Continue holding ATENOLOL, and other medications that may cause bradycardia as discussed previously. Will need cardiology follow-up within 1 week for further workup and evaluation with Holter monitor. Exam Vital Signs Temp Pulse Resp BP Pulse Ox O2 Del Method 99.4 F 79 25 H 124/67 94 L Room Air 01/02/25 16:00 01/02/25 16:00 01/02/25 16:00 01/02/25 16:00 01/02/25 16:00 01/02/25 16:00 Narrative Exam GENERAL * Normal appearing elderly female, NAD HEENT * NCAT.?CHARISSA. Oral mucosa is moist. Patent Nares NECK * Supple, nontender, no thyromegaly, no meningismus, no JVD, no step offs CHEST * RRR, 3/6 aortic systolic murmur, no m/g. * CTAB, no w/r/r. Symmetrical chest rise. No intercostal subcostal retraction * Atraumatic, nontender, no crepitus, symmetrical expansion. ABDOMEN * Soft, flat, nontender. No guarding/rebound tenderness/masses. * Bowel sounds presents EXTREMITIES * No edema/cyanosis.? SKIN * Warm and dry, no jaundice/rashes. NEUROMUSCULAR * Unable to assess 2/2 several dementia * Normal mood and affect, cooperative, no SI or HI or hallucinations. Objective Labs 01/03/25 05:40 01/03/25 05:40 Labs: Laboratory Results - last 24 hr 01/02/25 05:42 WBC 12.5 H D RBC 4.48 Hgb 13.4 Hct 40.0 MCV 89 MCH 29.9 MCHC 33.5 RDW Std Deviation 41.8 Plt Count 234 D Neut % (Auto) 75 Lymph % (Auto) 13 [place] % (Auto) 10 Eos % (Auto) 1 Baso % (Auto) 0 Neut # (Auto) 9.3 H Lymph # (Auto) 1.6 [place] # (Auto) 1.3 H Eos # (Auto) 0.2 Baso # (Auto) 0.0 Immature Gran # (Auto) 0.07 H Absolute Nucleated RBC 0.00 Immature Gran % 1 H Nucleated RBC % 0 Sodium 140 Potassium 3.3 L D Chloride 102 Carbon Dioxide 27.4 Anion Gap 11 BUN 16 Creatinine 0.7 Estim Creat Clear Calc 55.7 L eGFR > 60 BUN/Creatinine Ratio 23 H Glucose 94 Calculated Osmolality 280 Calcium 8.5 Magnesium 1.8 Quality Measures Quality Measures VTE prophylaxis (Heparin) Advance care planning discussed with:: patient Assessment & Plan Assessment Current Active Medications: Generic Name Dose Route Start Last Admin Trade Name Freq PRN Reason Stop Dose Admin Acetaminophen 650 mg 12/30/24 05:33 Acetaminophen 325 Mg Tablet PO 01/29/25 05:32 Q6H PRN PAIN OR FEVER > 101 Atorvastatin Calcium 20 mg 12/30/24 21:00 01/01/25 20:27 Atorvastatin Calcium 20 Mg Tablet PO 01/29/25 20:59 20 mg HS OBDULIA Administration Atropine Sulfate 1 mg 12/30/24 16:38 Atropine Sulf Inj 0.1 Mg/Ml Syr 10 Ml IV 01/29/25 16:37 Q3MIN PRN symptomatic bradycardia Divalproex Sodium 500 mg 12/30/24 21:00 01/02/25 08:[address] 500 Mg Tablet.Dr PO 01/29/25 20:59 500 mg BID OBDULIA Administration Escitalopram Oxalate 10 mg 12/30/24 09:45 01/02/25 08:56 Escitalopram Oxalate 10 Mg Tablet PO 01/29/25 09:44 10 mg QDAY OBDULIA Administration Heparin Sodium (Porcine) 5,000 unit 12/30/24 05:45 01/02/25 08:58 Heparin Sod Inj 5000 Unit/Ml Vial SC 01/13/25 05:44 5,000 unit Q12HR OBDULIA Administration Ceftriaxone Sodium/Dextrose 1 gm in 50 mls @ 100 mls/hr 12/30/24 05:37 01/02/25 08:57 Rocephin/D5w 1gm Iv Premix IV 01/06/25 05:36 100 mls/hr QDAY OBDULIA Administration Lorazepam 2 mg 12/30/24 05:33 Lorazepam 2 Mg/Ml Vial IVP 01/04/25 05:32 Q15MIN PRN SEIZURES Ondansetron HCl 4 mg 12/30/24 05:33 Ondansetron Inj 2 Mg/Ml Inj 2 Ml IV 01/29/25 05:32 Q6H PRN NAUSEA OR VOMITING Protocol Quetiapine Fumarate 100 mg 12/31/24 21:00 01/01/25 20:32 Quetiapine Fumarate 25 Mg Tablet PO 01/30/25 20:59 100 mg HS OBDULIA Administration Plan 79-year-old female PMHx of severe Alzheimer dementia, HTN, HLD,, calling of brain aneurysm, presenting with 3 weeks of progressively worsening mental status, admitted for new onset provoked seizure in setting of UTI. Cardiology consulted for bradycardia. Asymptomatic bradycardia (resolved) Abnormal EKG The patient was admitted for acute encephalopathy and a new onset seizure, likely triggered by a UTI. Cardiology was consulted to manage bradycardia. EKGs from previous visits (2019 and 2022) showed mostly sinus rhythm with sinus arrhythmia, a short CA interval, moderate intraventricular conduction delay, and moderate ST depression. Today's EKG shows a CA interval of 130 ms. The patient is asymptomatic, with no dizziness, palpitations, chest pain, or shortness of breath, though her dementia makes her a poor historian. The bradycardia is likely related to the medications DONEPEZIL and ATENOLOL, which have been appropriately discontinued. Electrolytes are normal. DONEPEZIL has a long half-life, and its effects will last for up to 300 hours after stopping. ATROPINE is recommended PRN. The heart rate is expected to drop further at night, so ATROPINE may be given if the heart rate falls below 40 and the patient becomes symptomatic. An echo will be scheduled to assess for any structural heart issues. Maintain K > 4.0 and Mg > 2.0 01/01/2025: Bradycardia improved. Labs unremarkable. Expect bradycardia will continue to improve over the next few days following stopping DONEPEZIL and ATENOLOL. BP slightly elevated, renal function normal, consider starting MANISH or ARB if no contraindications. Again no benefit of DONEPEZIL given severe dementia. Continue holding these medications as well as ATENOLOL or any other medications associated with bradycardia. 01/02/2025: Bradycardia resolved, HR well-controlled. Continue management as above, hold any medications that may cause bradycardia including ATENOLOL. Will need an office evaluation within 1 week of discharge with Holter monitor to look for arrhythmia. Acute encephalopathy s/p postictal state, improving New onset seizure Hx of dementia Hypertension Hyperlipidemia Diarrhea, improving History of depression Management of rest of the medical conditions as per primary team and other consultants. Thank you for the consult and allowing me to participate in the care of the patient. Cardiology will continue to follow. Case was discussed with attending, Dr. Diego. Ramesh Dunbar, DO PGYI Attending Provider Attestation/Addendum I have personally seen and examined the patient separately on the above date of service and discussed the plan of care with the resident. I reviewed the resident Dr. Ramesh Dunbar consultation progress note and agree with the resident findings and plan in the note above and have also edited the documentation to reflect my findings and plan. Cyrus Diego M.D. Interventional Cardiology
--- NOTE | 2025-01-02 19:50 | PD.NEUROPROG ---
Documentation for date of: 01/02/25 Exam - Neurology Vital Signs Temp Pulse Resp BP Pulse Ox O2 Del Method 99.4 F 79 25 H 124/67 94 L Room Air 01/02/25 16:00 01/02/25 16:00 01/02/25 16:00 01/02/25 16:00 01/02/25 16:00 01/02/25 16:00 Objective Labs 01/02/25 05:42 01/02/25 05:42 Labs: Laboratory Results - last 24 hr 01/02/25 05:42 WBC 12.5 H D RBC 4.48 Hgb 13.4 Hct 40.0 MCV 89 MCH 29.9 MCHC 33.5 RDW Std Deviation 41.8 Plt Count 234 D Neut % (Auto) 75 Lymph % (Auto) 13 [place] % (Auto) 10 Eos % (Auto) 1 Baso % (Auto) 0 Neut # (Auto) 9.3 H Lymph # (Auto) 1.6 [place] # (Auto) 1.3 H Eos # (Auto) 0.2 Baso # (Auto) 0.0 Immature Gran # (Auto) 0.07 H Absolute Nucleated RBC 0.00 Immature Gran % 1 H Nucleated RBC % 0 Sodium 140 Potassium 3.3 L D Chloride 102 Carbon Dioxide 27.4 Anion Gap 11 BUN 16 Creatinine 0.7 Estim Creat Clear Calc 55.7 L eGFR > 60 BUN/Creatinine Ratio 23 H Glucose 94 Calculated Osmolality 280 Calcium 8.5 Magnesium 1.8
[2025-01-02] MEDS: QUEtiapine FUMARATE 25 MG TABLET 100 MG PO (21:20)
[2025-01-02] MEDS: ATORVASTATIN CALCIUM 20 MG TABLET PO (21:20)
[2025-01-03] VITALS (10 sets, daily range): BP systolic 110–140; BP diastolic 71–96; PULSE 62–104; RESP 14–96; TEMP 36.2–37.3; O2SAT 94–98
--- NOTE | 2025-01-03 01:01 | PC.NURSE ---
report given to Shelby RITTER MS, pt is med tele going to rm [id number].
[2025-01-03 06:01] LABS: Basophils % (Auto) 0 % (0-2.5); Eosinophils # (Auto) 0.1 Thou/mm3 (0.0-0.5); Eosinophils % (Auto) 1 % (0-10); Hematocrit 39.5 % (36.0-46.0); Hemoglobin 13.1 g/dL (12.0-16.0); Immature Granulocytes % (Auto) 0 % (0-0); Immature Granulocytes Auto 0.07 Thou/mm3 (0.00-0.00); Lymphocytes # (Auto) 1.7 Thou/mm3 (1.0-4.8); Lymphocytes % (Auto) 11 % (10-50); Mean Corpuscular HGB Conc 33.2 g/dl (31.0-37.0); Mean Corpuscular Hemoglobin 29.6 pg (25.0-35.0); Mean Corpuscular Volume 89 fL (80-100); Monocytes # (Auto) 1.6 Thou/mm3 (0.0-0.8); Monocytes % (Auto) 10 % (0-12); Neutrophils # (Auto) 12.8 Thou/mm3 (1.8-7.7); Neutrophils % (Auto) 78 % (37-80); Nucleated Red Blood Cell % 0 /100 WBC (0); Platelet Count 225 Thou/mm3 (140-440); RDW Standard Deviation 42.6 fL (36.4-46.3); Red Blood Count 4.43 Miln/mm3 (4.00-5.20); White Blood Count 16.4 Thou/mm3 (3.6-11.0)
[2025-01-03 06:42] LABS: Alanine Aminotransferase 16 U/L (10-49); Albumin, Serum 3.9 gm/dL (3.4-4.8); Albumin/Globulin Ratio 1.7 (1.2-2.2); Alkaline Phosphatase 97 U/L (46-116); Anion Gap 13 (7-16); Aspartate Amino Transferase 15 U/L (0-34); BUN/Creatinine Ratio 16 Ratio (12-20); Bilirubin,Total 0.7 mg/dL (0.3-1.2); Blood Urea Nitrogen 13 mg/dL (9-23); Calcium 9.1 mg/dL (8.3-10.6); Calcium (Corrected) 9.2 mg/dL (8.5-10.1); Carbon Dioxide 25.5 mMol/L (20.0-31.0); Chloride 103 mMol/L (98-107); Creatinine (Component) 0.8 mg/dL (0.6-1.3); Estimated Creatinine Clearance 50.8 mL/min (>60); Globulin 2.3 gm/dL (2.3-3.5); Glucose 136 mg/dL (74-106); Osmolality,Calculated 283 (275-295); Phosphorous 5.2 mg/dL (2.4-5.1); Potassium 3.9 mMol/L (3.4-5.1); Sodium 141 mMol/L (136-145); Total Protein 6.2 gm/dL (5.7-8.2); eGFR > 60 See Note
[2025-01-03] MEDS: HEPARIN SOD INJ 5000 UNIT/ML VIAL SC ×2 (09:29→20:21)
[2025-01-03] MEDS: ESCITALOPRAM OXALATE 10 MG TABLET PO (09:29)
[2025-01-03] MEDS: cefTRIAXone/D5w 1gm IV premix 1 GM/50 ML BAG IV (09:29)
[2025-01-03] MEDS: DIVALPROEX SOD DR 500 MG TABLET.DR PO ×2 (09:29→20:21)
--- NOTE | 2025-01-03 09:58 | ESPR_ITS ---
Documentation for date of: 01/03/25 Subjective Subjective Interval history: No acute overnight events. Seen and examined with at bedside, reports feeling sleepy today, although pleasant mood. Denies new symptoms or worsening of symptoms. Vitals are stable, HR well-controlled. WBC slightly of 16.4, remains afebrile. CHEM panel relatively normal except for phosphorus 5.3 and GLUCOSE 136. Recommendations as discussed previously, continue holding medications associated with bradycardia. Will need cardiology evaluation outpatient with Holter monitor after discharge. Exam Vital Signs Temp Pulse Resp BP Pulse Ox O2 Del Method 97.6 F 71 16 123/71 95 Room Air 01/03/25 08:00 01/03/25 08:00 01/03/25 08:00 01/03/25 08:00 01/03/25 08:00 01/03/25 08:00 Narrative Exam GENERAL * Normal appearing elderly female, NAD HEENT * NCAT.?CHARISSA. Oral mucosa is moist. Patent Nares NECK * Supple, nontender, no thyromegaly, no meningismus, no JVD, no step offs CHEST * RRR, 3/6 aortic systolic murmur, no m/g. * CTAB, no w/r/r. Symmetrical chest rise. No intercostal subcostal retraction * Atraumatic, nontender, no crepitus, symmetrical expansion. ABDOMEN * Soft, flat, nontender. No guarding/rebound tenderness/masses. * Bowel sounds presents EXTREMITIES * No edema/cyanosis.? SKIN * Warm and dry, no jaundice/rashes. NEUROMUSCULAR * Unable to assess 2/2 several dementia * Normal mood and affect, cooperative, no SI or HI or hallucinations. Objective Labs 01/03/25 05:40 01/03/25 05:40 Labs: Laboratory Results - last 24 hr 01/03/25 05:40 WBC 16.4 H RBC 4.43 Hgb 13.1 Hct 39.5 MCV 89 MCH 29.6 MCHC 33.2 RDW Std Deviation 42.6 Plt Count 225 Neut % (Auto) 78 Lymph % (Auto) 11 Canadian % (Auto) 10 Eos % (Auto) 1 Baso % (Auto) 0 Neut # (Auto) 12.8 H Lymph # (Auto) 1.7 Canadian # (Auto) 1.6 H Eos # (Auto) 0.1 Baso # (Auto) 0.0 Immature Gran # (Auto) 0.07 H Absolute Nucleated RBC 0.00 Immature Gran % 0 Nucleated RBC % 0 Sodium 141 Potassium 3.9 D Chloride 103 Carbon Dioxide 25.5 Anion Gap 13 BUN 13 Creatinine 0.8 Estim Creat Clear Calc 50.8 L eGFR > 60 BUN/Creatinine Ratio 16 Glucose 136 H Calculated Osmolality 283 Calcium 9.1 Corrected Calcium 9.2 Phosphorus 5.2 H Magnesium 2.0 Total Bilirubin 0.7 AST 15 ALT 16 Alkaline Phosphatase 97 Total Protein 6.2 Albumin 3.9 Globulin 2.3 Albumin/Globulin Ratio 1.7 Quality Measures Quality Measures VTE prophylaxis (Heparin) Advance care planning discussed with:: patient Assessment & Plan Assessment Current Active Medications: Generic Name Dose Route Start Last Admin Trade Name Freq PRN Reason Stop Dose Admin Acetaminophen 650 mg 12/30/24 05:33 Acetaminophen 325 Mg Tablet PO 01/29/25 05:32 Q6H PRN PAIN OR FEVER > 101 Atorvastatin Calcium 20 mg 12/30/24 21:00 01/02/25 21:20 Atorvastatin Calcium 20 Mg Tablet PO 01/29/25 20:59 20 mg HS OBDULIA Administration Atropine Sulfate 1 mg 12/30/24 16:38 Atropine Sulf Inj 0.1 Mg/Ml Syr 10 Ml IV 01/29/25 16:37 Q3MIN PRN symptomatic bradycardia Divalproex Sodium 500 mg 12/30/24 21:00 01/03/25 09:[address] 500 Mg Tablet.Dr PO 01/29/25 20:59 500 mg BID OBDULIA Administration Escitalopram Oxalate 10 mg 12/30/24 09:45 01/03/25 09:29 Escitalopram Oxalate 10 Mg Tablet PO 01/29/25 09:44 10 mg QDAY OBDULIA Administration Heparin Sodium (Porcine) 5,000 unit 12/30/24 05:45 01/03/25 09:29 Heparin Sod Inj 5000 Unit/Ml Vial SC 01/13/25 05:44 5,000 unit Q12HR OBDULIA Administration Ceftriaxone Sodium/Dextrose 1 gm in 50 mls @ 100 mls/hr 12/30/24 05:37 01/03/25 09:29 Rocephin/D5w 1gm Iv Premix IV 01/06/25 05:36 100 mls/hr QDAY OBDULIA Administration Lorazepam 2 mg 12/30/24 05:33 Lorazepam 2 Mg/Ml Vial IVP 01/04/25 05:32 Q15MIN PRN SEIZURES Ondansetron HCl 4 mg 12/30/24 05:33 Ondansetron Inj 2 Mg/Ml Inj 2 Ml IV 01/29/25 05:32 Q6H PRN NAUSEA OR VOMITING Protocol Quetiapine Fumarate 100 mg 12/31/24 21:00 01/02/25 21:20 Quetiapine Fumarate 25 Mg Tablet PO 01/30/25 20:59 100 mg HS OBDULIA Administration Plan 79-year-old female PMHx of severe Alzheimer dementia, HTN, HLD,, calling of brain aneurysm, presenting with 3 weeks of progressively worsening mental status, admitted for new onset provoked seizure in setting of UTI. Cardiology consulted for bradycardia. Asymptomatic bradycardia (resolved) Abnormal EKG The patient was admitted for acute encephalopathy and a new onset seizure, likely triggered by a UTI. Cardiology was consulted to manage bradycardia. EKGs from previous visits (2019 and 2022) showed mostly sinus rhythm with sinus arrhythmia, a short [place] interval, moderate intraventricular conduction delay, and moderate ST depression. Today's EKG shows a WY interval of 130 ms. The patient is asymptomatic, with no dizziness, palpitations, chest pain, or shortness of breath, though her dementia makes her a poor historian. The bradycardia is likely related to the medications DONEPEZIL and ATENOLOL, which have been appropriately discontinued. Electrolytes are normal. DONEPEZIL has a long half-life, and its effects will last for up to 300 hours after stopping. ATROPINE is recommended PRN. The heart rate is expected to drop further at night, so ATROPINE may be given if the heart rate falls below 40 and the patient becomes symptomatic. An echo will be scheduled to assess for any structural heart issues. Maintain K > 4.0 and Mg > 2.0 01/01/2025: Bradycardia improved. Labs unremarkable. Expect bradycardia will continue to improve over the next few days following stopping DONEPEZIL and ATENOLOL. BP slightly elevated, renal function normal, consider starting MANISH or ARB if no contraindications. Again no benefit of DONEPEZIL given severe dementia. Continue holding these medications as well as ATENOLOL or any other medications associated with bradycardia. 01/02/2025: Bradycardia resolved, HR well-controlled. Continue management as above, hold any medications that may cause bradycardia including ATENOLOL. Will need an office evaluation within 1 week of discharge with Holter monitor to look for arrhythmia. 01/03/: HR well-controlled, no signs of arrhythmia on telemetry. Remains asymptomatic. Continue management as above, hold any medications that may cause bradycardia including ATENOLOL. Will need an office evaluation within 1 week of discharge with Holter monitor to look for arrhythmia. Acute encephalopathy s/p postictal state, improving New onset seizure Hx of dementia Hypertension Hyperlipidemia Diarrhea, improving History of depression Management of rest of the medical conditions as per primary team and other consultants. Thank you for the consult and allowing me to participate in the care of the patient. Cardiology will continue to follow. Case was discussed with attending, Dr. Diego. Ramesh Dunbar DO PGYI Attending Provider Attestation/Addendum I have personally seen and examined the patient separately on the above date of service and discussed the plan of care with the resident. I reviewed the resident Dr. Ramesh Dunbar consultation progress note and agree with the resident findings and plan in the note above and have also edited the documentation to reflect my findings and plan. Cyrus Diego M.D. Interventional Cardiology
--- NOTE | 2025-01-03 11:57 | PD.RESDS ---
Planned Discharge Date 01/03/25 DS: Providers Provider Date of admission: 12/30/24 04:26 Primary care physician: Jaime Walh MD Admitting Provider: Maxi Ventura MD Attending Provider on Admission: Chapito Levy DO Consults: 12/30/24 05:34 Consult to Neurology / Tele-Neurology Urgent Comment: Consulting Provider: Juan Dumont Referral Physical Therapy Routine Comment: Physician Instructions: 12/31/24 14:12 Consult to Cardiology Routine Comment: asymptomatic bradycardia Consulting Provider: Cyrus Diego Attending Provider on DC: Juan C Youngblood MD Discharging Provider: Juan C Youngblood MD DS: Diagnosis Problem List Completed Was Problem List Reviewed/Reconciled?: Yes Hospital Course Hospital Course Hospital course: Yumiko is a 79-year-old female with a past medical history of Alzheimer's dementia, hypertension, hyperlipidemia, coiling of brain aneurysms who was admitted to [facility] on December 30, 2024 for acute encephalopathy secondary to new onset seizures and asymptomatic bradycardia. Patient had to arrived to the ED with a blood pressure 130/74, respiratory 21, pulse rate 69, afebrile, saturating well on room air. Pt had leukocytosis, normal renal and liver function, UA positive for UTI. Chest x-ray was negative for evidence of pneumonia. EKG showed sinus bradycardia heart rate 59, CT head was ordered which showed no evidence of intracranial hemorrhage, mass effect or midline shift. Medicine was consulted patient admitted to the floors. While on the floors, neurology, Dr. Dumont was consulted. Patient had EEG which showed left hemispheric slowing and epileptic form changes. He was then put on Depakote 500 mg twice daily and recommended to follow-up outpatient in 2 weeks. Patient also started to have bradycardia. Bradycardia had started after patient was given her donezepil. Cardiology was consulted for bradycardia who had recommended to continue to treat UTI and discontinue donezepil. Patient was instructed to stop donezepil and be continued treatment for UTI. Patient also had stool cultures because patient had an episode of diarrhea and they were ordered, however they were negative. Physical therapy had recommended for patient to go to SNF in which patient and patient's family is agreeable. With patient's clinical improvement, patient was then discharged with the following instructions. Discharge Instructions: Follow up with your PCP within one week Follow up with Neurology, Dr. Dumont within two weeks Follow up with Cardiology within two weeks, as you will need Holter monitor to evaluate your heart rhythm and rate. We are discontinuing your donezepil at this time due to low heart rate We are holding your Atenolol at this time due to low heart rate, resume with your PCP if warranted. Take medicines as prescribed Take Augmentin, your antibiotic and finish this course as prescribed Take your new seizure medicine Divalproex as prescribed We have increased your Seroquel to 100 mg, take as prescribed Return to ER if your symptoms return Problem List: #Acute encephalopathy s/p postictal state, improving #New onset seizure (brain CT was negative) most likely secondary to UTI #Hx of dementia #Asymptomatic Bradycardia likely secondary to medication #UTI secondary to E. coli #Hypertension #Hyperlipidemia #Diarrhea, improving #History of depression - Patient's plan and care discussed with my attending, Dr. Cam Youngblood MD Internal Medicine PGY-2 Time Spent with Patient Time attestation: Total time spent providing and/or coordinating discharge services: Time spent: Greater than 30 minutes Exam Vital Signs Temp Pulse Resp BP Pulse Ox O2 Del Method 97.6 F 71 16 123/71 95 Room Air 01/03/25 08:00 01/03/25 08:00 01/03/25 08:00 01/03/25 08:00 01/03/25 08:00 01/03/25 08:00 Narrative Exam GEN: Lying in bed comfortably, not in acute distress with family at bedside HEENT: NC/AC, oral mucosa moist, neck supple CVS: RRR, S1-S2 present, no murmurs appreciated RESP: CTAB GI: soft,non distended, non tender, NBS MSK: able to move all 4 limbs, no lower extremity edema SKIN: warm and dry EXTENSION SERVICE SUPERVISOR: Unable to assess due to mental status. Discharge Plan Plan Patient Disposition: Xfer Skilled Nsg Fac (SNF) Patient condition on transfer: Stable and Benefits outweigh risks Care Plan Goals: Discharge Instructions: Follow up with your PCP within one week Follow up with Neurology, Dr. Dumont within two weeks Follow up with Cardiology within two weeks for your slow heart beeat. You may need a holter monitor We are discontinuing your donezepil at this time due to low heart rate We are holding your Atenolol at this time due to low heart rate, resume with your PCP if warranted. Take medicines as prescribed Take Augmentin, your antibiotic and finish this course as prescribed Take your new seizure medicine Divalproex as prescribed We have increased your Seroquel to 100 mg, take as prescribed Return to ER if your symptoms return Prescriptions/Referrals Prescriptions/Med Rec: New divalproex 500 mg Tablet,Delayed Release (Dr/Ec) 500 mg PO BID 14 Days Qty: 28 0RF quetiapine 100 mg tablet 100 mg PO QDAY 30 Days Qty: 30 0RF Rx Instructions: Take one tablet by mouth at night amoxicillin-pot clavulanate 875-125 mg tablet 1 tab PO BID 2 Days Qty: 4 0RF Rx Instructions: Take one tablet by mouth twice a day Continued lisinopril 5 MG tablet 5 mg PO QDAY Qty: 0 escitalopram oxalate 10 mg Tablet 10 mg PO QDAY atorvastatin 20 mg tablet 20 mg PO HS metformin 500 mg tablet 500 mg PO QDAY Patient Comments: TAKE 1 TABLET ONCE DAILY WITH A MEAL FOR DIABETES alendronate 70 mg tablet 70 mg PO QWEEK Patient Comments: TAKE 1 TABLET ONCE WEEKLY 30 MINUTES BEFORE THE FIRST FOOD, BEVERAGE OR MEDICINE OF THE DAY WITH PLAIN WATER Discontinued clonazepam [Klonopin] 1 MG tablet 1 mg PO BID Qty: 0 atenolol [Tenormin] 25 MG tablet 25 mg PO QDAY Qty: 0 donepezil 10 mg tablet 10 mg PO QDAY Patient Comments: TAKE 1 TABLET AT BEDTIME FOR MEMORY quetiapine 50 mg tablet 50 mg PO HS Patient Comments: take 1 tablet by mouth at bedtime for AGITATION Referrals: Jaime Wahl MD [Primary Care Provider] - Patient/Caregiver Discharge Instructions Discharge Activity: as per physical therapy Education Materials: Anatomy of the Female Urinary Tract, Urinary Tract Infections in Women, Understanding Urinary Tract ..., Dementia Caregiver Tips, Delirium & Dementia Difference, Understanding Bradycardia Print Language: Indonesian Stand Alone Forms: [employer] Award Info., Patient Portal Info Letter Discharge Order Discharge Orders: Discharge (Routine); Ordered 01/03/25 Ordered By: Juan C Youngblood Quality Discharge Quality Measures VTE prophylaxis Attestestation Attestation I have discussed and was present for the essential components of the discharge history, physical examination, diagnosis, and discharge treatment plan with the resident. I agree with the patient's discharge care as documented by the resident and amended herein by me. Antonio Levy DO. Patient cleared for discharge to SNF today, WBC has fluctuated over the patient's hospital stay, did uptrend to 16.4 however patient has been on broad-spectrum antibiotics for urinary tract infection secondary to urinary tract infection and will be discharged on an additional 2 days of Augmentin 875 mg twice daily to complete a full course. Patient also reported to have diarrhea when she came in which is resolved, stool cultures were drawn and were unremarkable, stool WBCs also unremarkable. Bradycardia was also a concern for the patient while admitted likely secondary to medication likely atenolol and donepezil which has been held until patient follow-up with her primary care provider. The patient's initial seizure was likely secondary to infection. The patient was stable, afebrile, tolerating p.o. intake at time of discharge back to SNF. Her was at bedside at time of discharge, all questions were answered satisfactorily. See resident note above for additional details in regards to hospital stay. Although this document has been carefully reviewed, there may still be some phonetic and other typographical errors. These errors are purely grammatical due to imperfections in the software program and should not be construed in any way to compromise the substance of the patient's medical care during this visit.
--- NOTE | 2025-01-03 13:05 | PC.SS ---
Stool culture results submitted via [facility] to [facility]. SS awaiting response from [facility] to confirm patient can be accepted today.
--- NOTE | 2025-01-03 13:38 | PC.SS ---
Addendum entered by Olvin Mar 01/03/25 16:24: SS left message for [facility], with new time SS learned that pt has medications and asked if transportation could be done at 10:30 SS spoke with Marty, spouse, informed him of change Addendum entered by Olvin Mar 01/03/25 16:23: SS cancelled transportation and notified medical team SS learned [facility] intake nurse had emergency and asked for pt can come in morning and they will take care of transportation Original Note: SS met pt and spouse, Marty, bedside updated them on status of transport to [facility], Marty aware if they are unable to transport that ambulance will be out of pocket cost SS spoke with Bibiana Charge Nurse [facility], she will reach out to [facility] to ensure all documents are received and determine if able to transport pt [facility] for [facility], regarding discharge
--- NOTE | 2025-01-03 15:28 | PC.SS ---
SS provided informaiton on medicare; unable to communicate with pt and provided to Marty spouse
[2025-01-03] MEDS: QUEtiapine FUMARATE 25 MG TABLET 100 MG PO (20:21)
[2025-01-03] MEDS: ATORVASTATIN CALCIUM 20 MG TABLET PO (20:21)
[2025-01-04] VITALS: PULSE 95
[2025-01-04 04:00] VITALS: BP 115/88; PULSE 82; PULSE 85; RESP 19; TEMP 36.4; O2SAT 94
[2025-01-04 05:30] LABS: Basophils # (Auto) 0.1 Thou/mm3 (0.0-0.2); Basophils % (Auto) 0 % (0-2.5); Eosinophils # (Auto) 0.1 Thou/mm3 (0.0-0.5); Eosinophils % (Auto) 1 % (0-10); Hematocrit 39.7 % (36.0-46.0); Hemoglobin 13.2 g/dL (12.0-16.0); Immature Granulocytes % (Auto) 1 % (0-0); Immature Granulocytes Auto 0.07 Thou/mm3 (0.00-0.00); Lymphocytes # (Auto) 1.5 Thou/mm3 (1.0-4.8); Lymphocytes % (Auto) 11 % (10-50); Mean Corpuscular HGB Conc 33.2 g/dl (31.0-37.0); Mean Corpuscular Hemoglobin 29.4 pg (25.0-35.0); Mean Corpuscular Volume 88 fL (80-100); Monocytes # (Auto) 1.2 Thou/mm3 (0.0-0.8); Monocytes % (Auto) 9 % (0-12); Neutrophils # (Auto) 10.3 Thou/mm3 (1.8-7.7); Neutrophils % (Auto) 78 % (37-80); Nucleated Red Blood Cell % 0 /100 WBC (0); Platelet Count 209 Thou/mm3 (140-440); RDW Standard Deviation 42.3 fL (36.4-46.3); Red Blood Count 4.49 Miln/mm3 (4.00-5.20); White Blood Count 13.2 Thou/mm3 (3.6-11.0)
[2025-01-04 05:58] LABS: Alanine Aminotransferase 15 U/L (10-49); Albumin, Serum 4.1 gm/dL (3.4-4.8); Albumin/Globulin Ratio 1.7 (1.2-2.2); Alkaline Phosphatase 92 U/L (46-116); Anion Gap 13 (7-16); Aspartate Amino Transferase 15 U/L (0-34); BUN/Creatinine Ratio 20 Ratio (12-20); Bilirubin,Total 0.7 mg/dL (0.3-1.2); Blood Urea Nitrogen 14 mg/dL (9-23); Calcium 9.2 mg/dL (8.3-10.6); Calcium (Corrected) 9.2 mg/dL (8.5-10.1); Carbon Dioxide 25.7 mMol/L (20.0-31.0); Chloride 99 mMol/L (98-107); Creatinine (Component) 0.7 mg/dL (0.6-1.3); Globulin 2.4 gm/dL (2.3-3.5); Glucose 109 mg/dL (74-106); Magnesium 1.9 mg/dL (1.6-2.6); Osmolality,Calculated 277 (275-295); Phosphorous 4.5 mg/dL (2.4-5.1); Potassium 3.9 mMol/L (3.4-5.1); Sodium 138 mMol/L (136-145); Total Protein 6.5 gm/dL (5.7-8.2); eGFR > 60 See Note
[2025-01-04 08:00] VITALS: BP 125/71; PULSE 90; RESP 21; TEMP 36.4; O2SAT 94
[2025-01-04] MEDS: ESCITALOPRAM OXALATE 10 MG TABLET PO (08:41)
[2025-01-04] MEDS: DIVALPROEX SOD DR 500 MG TABLET.DR PO (08:41)
[2025-01-04] MEDS: cefTRIAXone/D5w 1gm IV premix 1 GM/50 ML BAG IV (08:41)
[2025-01-04] MEDS: HEPARIN SOD INJ 5000 UNIT/ML VIAL SC (08:41)
--- NOTE | 2025-01-04 09:07 | PC.SS ---
SS spoke with [facility], asking for [facility], Discharge to be faxed [phone]; all documents were faxed and uploaded via Scheduling Employee Scheduling Software SS spoke with Marty pt spouse, confirmed transport SS spoke with [facility], confirmed transport at 10:30
--- NOTE | 2025-01-04 10:10 | ESPR_ITS ---
Documentation for date of: 01/04/25 Subjective Subjective Interval history: No acute overnight events. Seen and examined with at bedside. Denies fever, chills, headaches, chest pain, sob, cough, GI or urinary symptoms.. Vitals are stable, HR WNL, no current bradycardia. BC improving 13.2, remains afebrile. CHEM relatively normal. Recommendations as discussed previously, continue holding medications associated with bradycardia. Will need cardiology evaluation outpatient with Holter monitor after discharge. Exam Vital Signs Temp Pulse Resp BP Pulse Ox O2 Del Method 97.5 F 90 21 H 125/71 94 L Room Air 01/04/25 08:00 01/04/25 08:00 01/04/25 08:00 01/04/25 08:00 01/04/25 08:00 01/04/25 08:00 Narrative Exam GENERAL * Normal appearing elderly female, NAD HEENT * NCAT.?CHARISSA. Oral mucosa is moist. Patent Nares NECK * Supple, nontender, no thyromegaly, no meningismus, no JVD, no step offs CHEST * RRR, 3/6 aortic systolic murmur, no m/g. * CTAB, no w/r/r. Symmetrical chest rise. No intercostal subcostal retraction * Atraumatic, nontender, no crepitus, symmetrical expansion. ABDOMEN * Soft, flat, nontender. No guarding/rebound tenderness/masses. * Bowel sounds presents EXTREMITIES * No edema/cyanosis.? SKIN * Warm and dry, no jaundice/rashes. NEUROMUSCULAR * Unable to assess 2/2 several dementia * Normal mood and affect, cooperative, no SI or HI or hallucinations. Objective Labs 01/04/25 04:56 01/04/25 04:56 Labs: Laboratory Results - last 24 hr 01/04/25 04:56 WBC 13.2 H RBC 4.49 Hgb 13.2 Hct 39.7 MCV 88 MCH 29.4 MCHC 33.2 RDW Std Deviation 42.3 Plt Count 209 Neut % (Auto) 78 Lymph % (Auto) 11 [place] % (Auto) 9 Eos % (Auto) 1 Baso % (Auto) 0 Neut # (Auto) 10.3 H Lymph # (Auto) 1.5 [place] # (Auto) 1.2 H Eos # (Auto) 0.1 Baso # (Auto) 0.1 Immature Gran # (Auto) 0.07 H Absolute Nucleated RBC 0.00 Immature Gran % 1 H Nucleated RBC % 0 Sodium 138 Potassium 3.9 Chloride 99 Carbon Dioxide 25.7 Anion Gap 13 BUN 14 Creatinine 0.7 Estim Creat Clear Calc 58.0 L eGFR > 60 BUN/Creatinine Ratio 20 Glucose 109 H Calculated Osmolality 277 Calcium 9.2 Corrected Calcium 9.2 Phosphorus 4.5 Magnesium 1.9 Total Bilirubin 0.7 AST 15 ALT 15 Alkaline Phosphatase 92 Total Protein 6.5 Albumin 4.1 Globulin 2.4 Albumin/Globulin Ratio 1.7 Quality Measures Quality Measures VTE prophylaxis Advance care planning discussed with:: patient Assessment & Plan Assessment Current Active Medications: Generic Name Dose Route Start Last Admin Trade Name Freq PRN Reason Stop Dose Admin Acetaminophen 650 mg 12/30/24 05:33 Acetaminophen 325 Mg Tablet PO 01/29/25 05:32 Q6H PRN PAIN OR FEVER > 101 Atorvastatin Calcium 20 mg 12/30/24 21:00 01/03/25 20:21 Atorvastatin Calcium 20 Mg Tablet PO 01/29/25 20:59 20 mg HS OBDULIA Administration Atropine Sulfate 1 mg 12/30/24 16:38 Atropine Sulf Inj 0.1 Mg/Ml Syr 10 Ml IV 01/29/25 16:37 Q3MIN PRN symptomatic bradycardia Divalproex Sodium 500 mg 12/30/24 21:00 01/04/25 08:[address] 500 Mg Tablet.Dr PO 01/29/25 20:59 500 mg BID OBDULIA Administration Escitalopram Oxalate 10 mg 12/30/24 09:45 01/04/25 08:41 Escitalopram Oxalate 10 Mg Tablet PO 01/29/25 09:44 10 mg QDAY OBDULIA Administration Heparin Sodium (Porcine) 5,000 unit 12/30/24 05:45 01/04/25 08:41 Heparin Sod Inj 5000 Unit/Ml Vial SC 01/13/25 05:44 5,000 unit Q12HR OBDULIA Administration Ceftriaxone Sodium/Dextrose 1 gm in 50 mls @ 100 mls/hr 12/30/24 05:37 01/04/25 08:41 Rocephin/D5w 1gm Iv Premix IV 01/06/25 05:36 100 mls/hr QDAY OBDULIA Administration Ondansetron HCl 4 mg 12/30/24 05:33 Ondansetron Inj 2 Mg/Ml Inj 2 Ml IV 01/29/25 05:32 Q6H PRN NAUSEA OR VOMITING Protocol Quetiapine Fumarate 100 mg 12/31/24 21:00 01/03/25 20:21 Quetiapine Fumarate 25 Mg Tablet PO 01/30/25 20:59 100 mg HS OBDULIA Administration Plan 79-year-old female PMHx of severe Alzheimer dementia, HTN, HLD,, calling of brain aneurysm, presenting with 3 weeks of progressively worsening mental status, admitted for new onset provoked seizure in setting of UTI. Cardiology consulted for bradycardia. Asymptomatic bradycardia (resolved) Abnormal EKG The patient was admitted for acute encephalopathy and a new onset seizure, likely triggered by a UTI. Cardiology was consulted to manage bradycardia. EKGs from previous visits (2019 and 2022) showed mostly sinus rhythm with sinus arrhythmia, a short WI interval, moderate intraventricular conduction delay, and moderate ST depression. Today's EKG shows a WI interval of 130 ms. The patient is asymptomatic, with no dizziness, palpitations, chest pain, or shortness of breath, though her dementia makes her a poor historian. The bradycardia is likely related to the medications DONEPEZIL and ATENOLOL, which have been appropriately discontinued. Electrolytes are normal. DONEPEZIL has a long half-life, and its effects will last for up to 300 hours after stopping. ATROPINE is recommended PRN. The heart rate is expected to drop further at night, so ATROPINE may be given if the heart rate falls below 40 and the patient becomes symptomatic. An echo will be scheduled to assess for any structural heart issues. Maintain K > 4.0 and Mg > 2.0 01/01/2025: Bradycardia improved. Labs unremarkable. Expect bradycardia will continue to improve over the next few days following stopping DONEPEZIL and ATENOLOL. BP slightly elevated, renal function normal, consider starting MANISH or ARB if no contraindications. Again no benefit of DONEPEZIL given severe dementia. Continue holding these medications as well as ATENOLOL or any other medications associated with bradycardia. 01/02/2025: Bradycardia resolved, HR well-controlled. Continue management as above, hold any medications that may cause bradycardia including ATENOLOL. Will need an office evaluation within 1 week of discharge with Holter monitor to look for arrhythmia. 01/03/2025: HR well-controlled, no signs of arrhythmia on telemetry. Remains asymptomatic. Continue management as above, hold any medications that may cause bradycardia including ATENOLOL. Will need an office evaluation within 1 week of discharge with Holter monitor to look for arrhythmia. 01/04/2025: BP and HR WNL, no bradycardia on telemetry. Remains asymptomatic, without chest pain, palpitation, dizziness, lightheadedness or shortness of breath. Continue management as above, hold any medications that may cause bradycardia including ATENOLOL. Will need an office evaluation within 1-2 week of discharge with Holter monitor to look for arrhythmia. Acute encephalopathy s/p postictal state, improving New onset seizure Hx of dementia Hypertension Hyperlipidemia Diarrhea, improving History of depression Management of rest of the medical conditions as per primary team and other consultants. Thank you for the consult and allowing me to participate in the care of the patient. Cardiology will continue to follow. Case was discussed with attending, Dr. Diego. Ramesh Dunbar, DO PGYI Attending Provider Attestation/Addendum I have personally seen and examined the patient separately on the above date of service and discussed the plan of care with the resident. I reviewed the resident Dr. Ramesh Dunbar consultation progress note and agree with the resident findings and plan in the note above and have also edited the documentation to reflect my findings and plan. Cyrus Diego M.D. Interventional Cardiology
--- NOTE | 2025-01-04 11:04 | ESDS_ITS ---
<Statement entered by Juan C Youngblood MD - 01/04/25 12:22> 01/04/2025, patient was seen and examined at bedside. No new complaint and no incidents overnight. Patient's vital remained stable. Patient failed discharge yesterday as the nursing facility nurse had an emergency and they were unable to receive the patient. Patient will be discharged today to a retirement facility as per previous recommendations. - Patient's plan and care discussed with my attending, Dr. Cam Youngblood MD Internal Medicine PGY-2 Planned Discharge Date 01/04/25 DS: Providers Provider Date of admission: 12/30/24 04:26 Primary care physician: Jaime Wahl MD Admitting Provider: Maxi Ventura MD Attending Provider on Admission: Chapito Levy DO Consults: 12/30/24 05:34 Consult to Neurology / Tele-Neurology Urgent Comment: Consulting Provider: Juan Dumont Referral Physical Therapy Routine Comment: Physician Instructions: 12/31/24 14:12 Consult to Cardiology Routine Comment: asymptomatic bradycardia Consulting Provider: Cyrus Diego Attending Provider on DC: Juan C Youngblood MD Discharging Provider: Juan C Youngblood MD DS: Diagnosis Problem List Completed Was Problem List Reviewed/Reconciled?: Yes Hospital Course Hospital Course Hospital course: Yumiko is a 79-year-old female with a past medical history of Alzheimer's dementia, hypertension, hyperlipidemia, coiling of brain aneurysms who was admitted to [facility] on December 30, 2024 for acute encephalopathy secondary to new onset seizures and asymptomatic bradycardia. Patient had to arrived to the ED with a blood pressure 130/74, respiratory 21, pulse rate 69, afebrile, saturating well on room air. Pt had leukocytosis, normal renal and liver function, UA positive for UTI. Chest x-ray was negative for evidence of pneumonia. EKG showed sinus bradycardia heart rate 59, CT head was ordered which showed no evidence of intracranial hemorrhage, mass effect or midline shift. Medicine was consulted patient admitted to the floors. While on the floors, neurology, Dr. Dumont was consulted. Patient had EEG which showed left hemispheric slowing and epileptic form changes. He was then put on Depakote 500 mg twice daily and recommended to follow-up outpatient in 2 weeks. Patient also started to have bradycardia. Bradycardia had started after patient was given her donezepil. Cardiology was consulted for bradycardia who had recommended to continue to treat UTI and discontinue donezepil. Patient was instructed to stop donezepil and be continued treatment for UTI. Patient also had stool cultures because patient had an episode of diarrhea and they were ordered, however they were negative. Physical therapy had recommended for patient to go to SNF in which patient and patient's family is agreeable. With patient's clinical improvement, patient was then discharged with the following instructions. Discharge Instructions: Follow up with your PCP within one week Follow up with Neurology, Dr. Dumont within two weeks Follow up with Cardiology within two weeks, as you will need Holter monitor to evaluate your heart rhythm and rate. We are discontinuing your donezepil at this time due to low heart rate We are holding your Atenolol at this time due to low heart rate, resume with your PCP if warranted. Take medicines as prescribed Take Augmentin, your antibiotic and finish this course as prescribed Take your new seizure medicine Divalproex as prescribed We have increased your Seroquel to 100 mg, take as prescribed Return to ER if your symptoms return Problem List: #Acute encephalopathy s/p postictal state, improving #New onset seizure (brain CT was negative) most likely secondary to UTI #Hx of dementia #Asymptomatic Bradycardia likely secondary to medication #UTI secondary to E. coli #Hypertension #Hyperlipidemia #Diarrhea, improving #History of depression - Patient's plan and care discussed with my attending, Dr. Cam Youngblood MD Internal Medicine PGY-2 Time Spent with Patient Time attestation: Total time spent providing and/or coordinating discharge services: Time spent: Greater than 30 minutes Exam Vital Signs Temp Pulse Resp BP Pulse Ox O2 Del Method 97.5 F 90 21 H 125/71 94 L Room Air 01/04/25 08:00 01/04/25 08:00 01/04/25 08:00 01/04/25 08:00 01/04/25 08:00 01/04/25 08:00 Narrative Exam GEN: Lying in bed comfortably, not in acute distress with at bedside HEENT: NC/AC, oral mucosa moist, neck supple CVS: RRR, S1-S2 present, no murmurs appreciated RESP: CTAB GI: soft,non distended, non tender, NBS MSK: able to move all 4 limbs, no lower extremity edema SKIN: warm and dry LACE AND TEXTILES RESTORER: Unable to assess due to mental status. Discharge Plan Plan Patient Disposition: Xfer Skilled Nsg Fac (SNF) Patient condition on transfer: Stable and Benefits outweigh risks Care Plan Goals: Discharge Instructions: Follow up with your PCP within one week Follow up with Neurology, Dr. Dumont within two weeks Follow up with Cardiology within two weeks for your slow heart beat. You may n eed a holter monitor We are discontinuing your donezepil at this time due to low heart rate We are holding your Atenolol at this time due to low heart rate, resume with your PCP if warranted. Take medicines as prescribed Take Augmentin, your antibiotic, for two more days to finish this course Take your new seizure medicine Divalproex as prescribed We have increased your Seroquel to 100 mg, take as prescribed Return to ER if your symptoms return Prescriptions/Referrals Prescriptions/Med Rec: New divalproex 500 mg Tablet,Delayed Release (Dr/Ec) 500 mg PO BID 14 Days Qty: 28 0RF quetiapine 100 mg tablet 100 mg PO QDAY 30 Days Qty: 30 0RF Rx Instructions: Take one tablet by mouth at night amoxicillin-pot clavulanate 875-125 mg tablet 1 tab PO BID 2 Days Qty: 4 0RF Rx Instructions: Take one tablet by mouth twice a day Continued lisinopril 5 MG tablet 5 mg PO QDAY Qty: 0 escitalopram oxalate 10 mg Tablet 10 mg PO QDAY atorvastatin 20 mg tablet 20 mg PO HS metformin 500 mg tablet 500 mg PO QDAY Patient Comments: TAKE 1 TABLET ONCE DAILY WITH A MEAL FOR DIABETES alendronate 70 mg tablet 70 mg PO QWEEK Patient Comments: TAKE 1 TABLET ONCE WEEKLY 30 MINUTES BEFORE THE FIRST FOOD, BEVERAGE OR MEDICINE OF THE DAY WITH PLAIN WATER Discontinued clonazepam [Klonopin] 1 MG tablet 1 mg PO BID Qty: 0 atenolol [Tenormin] 25 MG tablet 25 mg PO QDAY Qty: 0 donepezil 10 mg tablet 10 mg PO QDAY Patient Comments: TAKE 1 TABLET AT BEDTIME FOR MEMORY quetiapine 50 mg tablet 50 mg PO HS Patient Comments: take 1 tablet by mouth at bedtime for AGITATION Referrals: Jaime aWhl MD [Primary Care Provider] - Patient/Caregiver Discharge Instructions Discharge Activity: as per physical therapy Education Materials: Anatomy of the Female Urinary Tract, Urinary Tract Infections in Women, Understanding Urinary Tract ..., Dementia Caregiver Tips, Delirium & Dementia Difference, Understanding Bradycardia Print Language: Stateless Stand Alone Forms: [employer] Award Info., Patient Portal Info Letter Discharge Order Discharge Orders: Discharge (Routine); Ordered 01/04/25 Ordered By: Juan C Youngblood Quality Discharge Quality Measures VTE prophylaxis MD Attestestation MD Attestation I have discussed and was present for the essential components of the discharge history, physical examination, diagnosis, and discharge treatment plan with the resident. I agree with the patient's discharge care as documented by the resident and amended herein by me. Antonio Levy DO. Patient cleared for discharge to SNF today, WBC has down trended, patient will be discharged on an additional day of Augmentin 875 mg twice daily to complete a full course. Patient also reported to have diarrhea when she came in which is resolved, stool cultures were drawn and were unremarkable, stool WBCs also unremarkable. Bradycardia was also a concern for the patient while admitted likely secondary to medication likely atenolol and donepezil which has been held until patient follow-up with her primary care provider. The patient's initial seizure was likely secondary to infection. The patient was stable, afebrile, tolerating p.o. intake at time of discharge back to SNF. Her was at [facility] at time of discharge, all questions were answered satisfactorily. See resident note above for additional details in regards to hospital stay. Although this document has been carefully reviewed, there may still be some phonetic and other typographical errors. These errors are purely grammatical due to imperfections in the software program and should not be construed in any way to compromise the substance of the patient's medical care during this visit.
== END 2025-01-04 10:40 | disposition skilled nursing facility (03) | DRG 101 ==
LOC: SERX 12-30 03:42 → SERHOLD 12-30 04:59 → S2NX 12-30 09:14 → S3SX 01-03 01:13
PROVIDERS: Student in an Organized Health Care Education/Training Program; Admitting Provider Internal Medicine; Emergency Provider Emergency Medicine; PCP Family Medicine; Visit Provider Student in an Organized Health Care Education/Training Program
DX: R56.9 Unspecified convulsions (principal); N39.0 Urinary tract infection, site not specified; G93.49 Other encephalopathy; F02.C3 Dementia in other diseases classified elsewhere, severe, with mood disturbance; I10 Essential (primary) hypertension; G30.9 Alzheimer's disease, unspecified; F02.80 Dementia in other diseases classified elsewhere, unspecified severity, without behavioral disturbance, psychotic disturbance, mood disturbance, and anxiety; E11.9 Type 2 diabetes mellitus without complications; K21.9 Gastro-esophageal reflux disease without esophagitis; E78.5 Hyperlipidemia, unspecified; I67.1 Cerebral aneurysm, nonruptured; R19.7 Diarrhea, unspecified; R15.9 Full incontinence of feces; B96.20 Unspecified Escherichia coli [E. coli] as the cause of diseases classified elsewhere; B96.89 Other specified bacterial agents as the cause of diseases classified elsewhere; F32.A Depression, unspecified; E83.39 Other disorders of phosphorus metabolism; Z78.1 Physical restraint status; Z79.83 Long term (current) use of bisphosphonates; Z79.899 Other long term (current) drug therapy; Z90.710 Acquired absence of both cervix and uterus; Z91.81 History of falling; Z88.5 Allergy status to narcotic agent; Z88.8 Allergy status to other drugs, medicaments and biological substances
CPT/HCPCS: 36415; 70450; 71045; 80048; 80053; 80061; 80076; 80307; 81001; 81025; 83735; 84100; 84443; 84484; 85025; 85610; 87015; 87040; 87045; 87046; 87077; 87086; 87186; 87205; 87899; 93005; 93225; 93306; 95816; 96365; 96372; 97162; 99285; J0696; J1644; J3475; J3480; J7030; J7040; A9270